=== PATIENT | male | born 1935 | race Caucasian/White ===

== ENCOUNTER → 2016-12-02 | Outpatient (CLI) | payer BC ==
[~2016-12-02] MED LIST: ALBU1.257 NEB; ASCO100T4 PO; ASPI81TA28 PO; CHOL1000 PO; CLOP1TAB15 PO; COEN100C11 PO; FLUT1INH INH; FRS/40 PO; GLCSC750600 PO; GLUC1TAB22 PO; HYT/2 PO; IMDSR60 PO; LECIGRA PO; LOSA1TAB PO; METO100T14 PO; METO50TA16 PO; MOME200A INH; MULT-513 PO; NTRGSL/4 UT; OMEG10007 PO; PRED20TA2 PO; SIMV40TA2 PO; VNTHFA/IN INH; ZNTT/150 PO
[2016-12-02 12:57] LABS: CALCIUM 9.1 mg/dl (8.5-10.1)
[2016-12-02 13:05] LABS: ALT/SGPT 31 U/L (12-78); AST/SGOT 24 U/L (15-37); BLOOD UREA NITROGEN 26 mg/dl (7-18); BUN/CREATININE RATIO 23.5 (10-20); CARBON DIOXIDE 25 mmol/L (21-32); CHLORIDE 111 mmol/L (98-107); CHOLESTEROL 171 mg/dl (0-200); GLUCOSE 99 mg/dl (70-99); POTASSIUM 4.3 mmol/L (3.5-5.1); SODIUM 144 mmol/L (136-145); TRIGLYCERIDES 95 mg/dl (0-150); VERY LOW DENSITY LIPOPROT CALC 19 mg/dl
[2016-12-02 13:12] LABS: ALB/GLOB RATIO 1.1 (0.9-2); ALKALINE PHOSPHATASE 63 U/L (45-117); CHOLESTEROL/HDL RATIO 2.9; HDL CHOLESTEROL 60 mg/dl; LDL CHOLESTEROL CALCULATED 92 mg/dl
== END | disposition home or self-care (01) ==
LOC: C.LABPVFM 07:53
PROVIDERS: ATTEND Family Medicine
DX: I25.10 Atherosclerotic heart disease of native coronary artery without angina pectoris (principal)

== ENCOUNTER 2016-12-16 16:55 | Emergency (ER) | payer BC ==
[~2016-12-16] VITALS: Ht 172.7 cm; Wt 91.3 kg
[~2016-12-16 16:55] MED LIST changes: -ALBU1.257 NEB; -ASCO100T4 PO; -CHOL1000 PO; -COEN100C11 PO; -FLUT1INH INH; -FRS/40 PO; -GLUC1TAB22 PO; -LOSA1TAB PO; -METO100T14 PO; -PRED20TA2 PO; -VNTHFA/IN INH
[2016-12-16 16:57] VITALS: TEMP 36.7; Ht 172.7 cm; Wt 91.3 kg
[2016-12-16] MEDS ORDERED: METO100T14 PO (17:43)
[2016-12-16] MEDS ORDERED: ALBUT/IPRATROP 3MG/0.5MG NEB 3 ML VIAL INH ONE (17:45)
[2016-12-16] MEDS ORDERED: FLUT1INH INH (17:46)
[2016-12-16] MEDS ORDERED: FRS/40 PO (17:50)
[2016-12-16] MEDS ORDERED: LOSA1TAB PO (17:51)
--- NOTE | 2016-12-16 17:51 | EMERGENCY ROOM VISIT NOTE ---
History Report prepared by Whitney: Sita Contreras Under the Supervision of: Dr. Gary Rivas M.D. First contact with patient: 17:25 Chief Complaint: RESPIRATORY PROBLEMS Stated Complaint: ADDED WEIGHT,DIFFICULTY BREATHING History of Present Illness The patient is an 81 year old male who presents to the Emergency Room with complaints of persistent SOB for the past few days. He has a history of CHF and is on Lasix which he takes every other day. For the past few days he has had to take Lasix everyday because of increasing weight gain and SOB. He felt short of breath when lying flat and noticed that his abdomen was swollen. He is also increasingly SOB when walking. He has gained 4-7 lbs in the last couple of days. He denies any chest pain or abdominal pain. He is not on oxygen at home. He has inhalers at home. He has a history of quadruple bypass and has a stent in place. He has a pacemaker. Source of History: patient Onset: few days ago Position: other (respiratory) Quality: other (SOB) Timing: other (persistent) Modifying Factors (Worsening): exertion, other (lying flat) Associated Symptoms: No abdominal pain, No chest pain Note: Pt reports weight gain, swollen abdomen. Review of Systems See HPI for pertinent positives & negatives. A total of 10 systems reviewed and were otherwise negative. 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 Surgical Problems: (1) Hx of CABG (2) S/P placement of cardiac pacemaker Family History Heart disease Hypertension Social History Smoking Status: Never Smoker Alcohol Use: none Drug Use: none Marital Status: Housing Status: lives with significant other Occupation Status: retired Current/Historical Medications Scheduled Albuterol Sulfate (Albuterol Sulfate), 1 VIAL NEB BID Ascorbic Acid (Vitamin C), 100 MG PO BID Aspirin (Aspirin Ec), 81 MG PO DAILY Cholecalciferol (Vitamin D3), 1 TAB PO QPM Clopidogrel (Plavix), 75 MG PO DAILY Coenzyme Q10 (Ubidecarenone) (Coq-10), 100 MG PO QPM Fish Oil (Fischer-3), 1 CAP PO BID Fluticasone Furoate-Vilanterol (Breo Ellipta), 1 PUFF INH DAILY Glucosamine Hydrochloride (Glucosamine), 1,500 MG PO BID Isosorbide Mononitrate (Isosorbide Mononitrate ER), 60 MG PO DAILY Lecithin (Lecithin), 1 DOSE PO DAILY Losartan Potassium (Cozaar), 1 TAB PO QPM Metoprolol Tartrate (Lopressor) (Lopressor), 50 MG PO BID Mometasone Furoate-Formoterol (Dulera 200/5 Mcg), 2 PUFFS INH BID Multivitamins/Minerals (Mvi With Minerals), 1 TAB PO DAILY Nitroglycerin (Nitrostat), 0.4 MG UT PRN Prednisone (Prednisone Tab), 0 PO DAILY Ranitidine (Zantac), 75 MG PO QPM Simvastatin (Zocor), 40 MG PO QPM Terazosin Hcl (Hytrin), 2 MG PO QPM Scheduled PRN Albuterol Hfa (Ventolin Hfa), 1-2 PUFFS INH DAILY PRN for SOB/Wheezing Furosemide (Lasix), 40 MG PO DAILY PRN for EDEMA Allergies Coded Allergies: Fluticasone (Unverified Adverse Reaction, Intermediate, DIZZY, 12/16/16) Milk Protein Extract (Unverified Adverse Reaction, Intermediate, DIZZY, 12/16/16) Salmeterol (Unverified Adverse Reaction, Intermediate, DIZZY, 12/16/16) Physical Exam Vital Signs Date Time Temp Pulse Resp B/P Pulse Ox O2 Delivery O2 Flow Rate FiO2 12/16/16 20:12 139/88 12/16/16 19:56 101 18 96 Room Air 12/16/16 19:32 98 12/16/16 18:48 99 12/16/16 18:48 73 18 138/70 100 Room Air 12/16/16 18:48 100 12/16/16 18:34 72 20 93 Room Air 21 12/16/16 16:57 36.7 91 22 121/78 93 Room Air Physical Exam GENERAL: Patient is a healthy-appearing well-nourished HEAD: Normocephalic atraumatic EYES: Ocular movements intact pupils equal and react to light OROPHARYNX mucous membranes are moist no exudates present no erythema or edema present NECK: Supple no nuchal rigidity CHEST: Good equal expansion LUNGS: Clear and equal to auscultation CARDIAC: Normal S1 and S2 ABDOMEN: Soft nontender no guarding BACK: No CVA tenderness EXTREMITIES: No pain upon palpation normal muscle strength in all groups no clubbing cyanosis or edema NEURO: Patient is following commands is answering questions appropriately. Alert and oriented x3 Cranial Nerves 2-12 grossly intact Medical Decision & Procedures ER Provider Diagnostic Interpretation: X-ray results as stated below per interpretation by me and the radiologist. Radiology results as stated below per my review and radiologist interpretation: CHEST ONE VIEW PORTABLE CLINICAL HISTORY: Pt c/o SOB dyspnea COMPARISON STUDY: 03/17/2016 FINDINGS: Moderate stable cardiomegaly. Cardiac pacemaker/defibrillator. Prior median sternotomy. Lungs are clear. IMPRESSION: Moderate stable cardiomegaly. Otherwise negative study Electronically signed by: Eduardo Rosales M.D. 12/16/2016 6:30 PM Dictated Date/Time: 12/16/2016 6:29 PM CHEST CTA for PULMONARY ARTERIES CT DOSE: 594.87 mGy.cm HISTORY: Chest dyspnea TECHNIQUE: Multiaxial CT images of the chest were performed following the intravenous administration of contrast to evaluate the pulmonary arteries. Maximal intensity projection images were also obtained. COMPARISON STUDY: None. FINDINGS: There is a normal caliber thoracic aorta with no evidence for dissection. There is no evidence for pulmonary embolus. No pleural effusions. No pneumothorax. The liver and spleen are unremarkable. No mediastinal or hilar lymphadenopathy. The central airways are patent. The lungs are clear. No focal infiltrate. Large fixed lateral hernia. Prior median sternotomy. Cardiac pacemaker. IMPRESSION: No evidence for pulmonary embolus. Large fixed hiatal hernia. Lungs are clear. Electronically signed by: Eduardo Rosales M.D. 12/16/2016 7:34 PM Dictated Date/Time: 12/16/2016 7:32 PM Laboratory Results 12/16/16 17:56 Red Blood Count 4.25, Mean Corpuscular Volume 96.0, Mean Corpuscular Hemoglobin 32.0, Mean Corpuscular Hemoglobin Concent 33.3, Mean Platelet Volume 10.8, Neutrophils (%) (Auto) 60.1, Lymphocytes (%) (Auto) 22.2, Monocytes (%) (Auto) 13.0, Eosinophils (%) (Auto) 3.1, Basophils (%) (Auto) 0.5, Neutrophils # (Auto ) 3.33, Lymphocytes # (Auto) 1.23, Monocytes # (Auto) 0.72, Eosinophils # (Auto ) 0.17, Basophils # (Auto) 0.03 12/16/16 17:56 Test 12/16/16 17:56 12/16/16 19:12 White Blood Count 5.54 K/uL (4.8-10.8) Red Blood Count 4.25 M/uL (4.7-6.1) Hemoglobin 13.6 g/dL (14.0-18.0) Hematocrit 40.8 % (42-52) Mean Corpuscular Volume 96.0 fL (80-100) Mean Corpuscular Hemoglobin 32.0 pg (25-34) Mean Corpuscular Hemoglobin Concent 33.3 g/dl (32-36) Platelet Count 168 K/uL (130-400) Mean Platelet Volume 10.8 fL (7.4-10.4) Neutrophils (%) (Auto) 60.1 % Lymphocytes (%) (Auto) 22.2 % Monocytes (%) (Auto) 13.0 % Eosinophils (%) (Auto) 3.1 % Basophils (%) (Auto) 0.5 % Neutrophils # (Auto) 3.33 K/uL (1.4-6.5) Lymphocytes # (Auto) 1.23 K/uL (1.2-3.4) Monocytes # (Auto) 0.72 K/uL (0.11-0.59) Eosinophils # (Auto) 0.17 K/uL (0-0.5) Basophils # (Auto) 0.03 K/uL (0-0.2) RDW Standard Deviation 49.4 fL (36.4-46.3) RDW Coefficient of Variation 13.9 % (11.5-14.5) Immature Granulocyte % (Auto) 1.1 % Immature Granulocyte # (Auto) 0.06 K/uL (0.00-0.02) Red Blood Cell Morphology Unremarkable Anion Gap 6.0 mmol/L (3-11) Est Creatinine Clear Calc Drug Dose 58.7 ml/min Estimated GFR () 73.1 Estimated GFR (Non- 63.1 BUN/Creatinine Ratio 19.3 (10-20) Calcium Level 8.3 mg/dl (8.5-10.1) Total Bilirubin 0.5 mg/dl (0.2-1) Aspartate Amino Transf (AST/SGOT) 27 U/L (15-37) Alanine Aminotransferase (ALT/SGPT) 23 U/L (12-78) Alkaline Phosphatase 60 U/L (45-117) Total Creatine Kinase 89 U/L (39-308) Creatine Kinase MB 2.4 ng/ml (0.5-3.6) Creatine Kinase MB Ratio 2.7 (0-3.0) Troponin I 0.017 ng/ml (0-0.045) Pro-B-Type Natriuretic Peptide 612 pg/ml (0-1800) Total Protein 6.2 gm/dl (6.4-8.2) Albumin 3.2 gm/dl (3.4-5.0) Globulin 3.0 gm/dl (2.5-4.0) Albumin/Globulin Ratio 1.1 (0.9-2) Chemistry Specimen Hemolysis Urine Color YELLOW Urine Appearance CLOUDY (CLEAR) Urine pH 5.0 (4.5-7.5) Urine Specific [place] 1.017 (1.000-1.030) Urine Protein NEG (NEG) Urine Glucose (UA) NEG (NEG) Urine Ketones TRACE (NEG) Urine Occult Blood NEG (NEG) Urine Nitrite NEG (NEG) Urine Bilirubin NEG (NEG) Urine Urobilinogen NEG (NEG) Urine Leukocyte Esterase NEG (NEG) Urine WBC (Auto) 1-5 /hpf (0-5) Urine RBC (Auto) 0-4 /hpf (0-4) Urine Hyaline Casts (Auto) 1-5 /lpf (0-5) Urine Epithelial Cells (Auto) >30 /lpf (0-5) Urine Bacteria (Auto) NEG (NEG) Labs reviewed by ED physician. Medications Administered Medications (Trade) Dose Ordered Sig/Nitin Route Start Time Stop Time Status Last Admin Dose Admin Albuterol/ Ipratropium (Duoneb) 12 ml ONE ONCE INH 12/16/16 17:45 12/16/16 17:46 DC 12/16/16 17:45 12 ML Methylprednisolone Sodium Succinate (Solu-Medrol IV) 60 mg NOW STAT IV 12/16/16 19:48 12/16/16 19:50 DC 12/16/16 20:01 60 MG Prednisone (PredniSONE TAB) 40 mg NOW STAT PO 12/16/16 20:07 12/16/16 20:08 DC 12/16/16 20:10 40 MG ECG Indication: SOB/dyspnea Rate (beats per minute): 70 Rhythm: other (dual paced rhythm) Findings: no acute ischemic change, no ectopy ED Course 1725: Past medical records reviewed. The patient was evaluated in room B4B. A complete history and physical examination was performed. 1744: Duoneb 12 ml INH. 1941: Upon reexamination the patient is resting comfortably. I discussed results and treatment plan with the patient and his family. They verbalize agreement and understanding. The patient is ready for discharge. 1947: Solu-Medrol IV 60 mg IV. Medical Decision Prior records/ancillary studies reviewed. Triage Nursing notes reviewed. Additional history obtained from the family. The patient's history was concerning for respiratory difficulties. Differential diagnosis: Etiologies such as infections, reactive airway disease, pneumonia, pneumothorax , COPD, CHF, cardiac ischemia, pulmonary embolism, musculoskeletal, gastrointestinal, as well as others were entertained. This is an 81-year-old male who presents emergency department complaining of 4 pound weight can. The patient is concern that he is filled with fluid. He has no evidence of pitting edema on exam. He has no evidence of rails on exam. He has no evidence of pulmonary edema on chest x-ray. In addition the patient's BNP is normal. The patient was given an hour-long breathing treatment in the emergency department. He is not hypoxic. Based on these multiple findings I felt that the patient as well as to be discharged home. He was sent for CAT scan of the chest which did not show any evidence of a PE. The patient will therefore be certain on Solu-Medrol and I feels well enough to be continued on prednisone for the next several days. Patient and family are in agreement with the treatment plan. Impression Primary Impression: COPD (chronic obstructive pulmonary disease) Scribe Attestation The scribe's documentation has been prepared under my direction and personally reviewed by me in its entirety. I confirm that the note above accurately reflects all work, treatment, procedures, and medical decision making performed by me. Departure Information Dispostion Home / Self-Care Prescriptions Prednisone (Prednisone Tab) 20 Mg Tab 0 PO DAILY, #7 TAB 2 TABS DAILY FOR 2 DAYS, THEN 1 TAB DAILY FOR 2 DAYS, THEN 1/2 TAB DAILY FOR 2 DAYS. Prov: Gary Rivas MD 12/16/16 Referrals Robe Peralta M.D. (PCP) Ck Arce MD Forms HOME CARE DOCUMENTATION FORM, IMPORTANT VISIT INFORMATION, WORK / SCHOOL INSTRUCTIONS Patient Instructions COPD - [facility], My [facility] Additional Instructions Follow up with DR Arce's office Continue to use inhalers and Lasix as directed You have been examined and treated today on an emergency basis only. This is not a substitute for, or an effort to provide, complete comprehensive medical care. It is impossible to recognize and treat all injuries or illnesses in a single emergency department visit. It is therefore important that you follow up closely with Dr Peralta. Call as soon as possible for an appointment. Thank you for your time and consideration. I look forward to speaking with you again soon. Please don't hesitate to call us if you have any questions. Problem Qualifiers Primary Impression: COPD (chronic obstructive pulmonary disease) COPD type: unspecified COPD Qualified Codes: J44.9 - Chronic obstructive pulmonary disease, unspecified
[2016-12-16] MEDS ORDERED: ALBU1.257 NEB (17:53)
[2016-12-16] MEDS ORDERED: VNTHFA/IN INH (17:55)
[2016-12-16] MEDS ORDERED: CHOL1000 PO (17:56)
[2016-12-16] MEDS ORDERED: COEN100C11 PO (17:59)
[2016-12-16] MEDS ORDERED: ASCO100T4 PO (17:59)
[2016-12-16] MEDS ORDERED: GLUC1TAB22 PO (18:01)
[2016-12-16 18:08] LABS: BASO % 0.5 %; BASO ABS # 0.03 K/uL (0-0.2); EOS % 3.1 %; HEMATOCRIT 40.8 % (42-52); IG% 1.1 %; LYMPH % 22.2 %; LYMPH ABS # 1.23 K/uL (1.2-3.4); MEAN CORPUSCULAR HGB CONC 33.3 g/dl (32-36); MEAN PLATELET VOLUME 10.8 fL (7.4-10.4); NEUT % 60.1 %; PLATELET COUNT 168 K/uL (130-400); RED BLOOD COUNT 4.25 M/uL (4.7-6.1); WHITE BLOOD COUNT 5.54 K/uL (4.8-10.8)
--- NOTE | 2016-12-16 18:31 | DIAGNOSTIC IMAGING REPORT ---
CHEST ONE VIEW PORTABLE CLINICAL HISTORY: Pt c/o SOB dyspnea COMPARISON STUDY: 03/17/2016 FINDINGS: Moderate stable cardiomegaly. Cardiac pacemaker/defibrillator. Prior median sternotomy. Lungs are clear. IMPRESSION: Moderate stable cardiomegaly. Otherwise negative study Electronically signed by: Eduardo Rosales M.D. 12/16/2016 6:30 PM Dictated Date/Time: 12/16/2016 6:29 PM
[2016-12-16 18:34] VITALS: PULSE 72; O2SAT 93
[2016-12-16 18:36] LABS: ALB/GLOB RATIO 1.1 (0.9-2); BUN/CREATININE RATIO 19.3 (10-20); CALCIUM 8.3 mg/dl (8.5-10.1); CKMB/CK RATIO 2.7 (0-3.0); COMPLETE YES; CREATININE 1.1 mg/dl (0.60-1.40)
[2016-12-16 18:48] VITALS: O2SAT 100
[2016-12-16] MEDS ORDERED: OPTIRAY 320 IV PRN (19:00)
[2016-12-16 19:34] LABS: URINE APPEARANCE CLOUDY (CLEAR); URINE BILIRUBIN NEG (NEG); URINE COLOR YELLOW; URINE EPITHELIAL CELL AUTO >30 /lpf (0-5); URINE NITRITE NEG (NEG); URINE SPECIFIC GRAVITY 1.017 (1.000-1.030); UROBILINOGEN NEG (NEG)
[2016-12-16 19:35] LABS: MANUAL MICROSCOPIC REQUIRED? NO; REVIEW REQ? NO
--- NOTE | 2016-12-16 19:36 | DIAGNOSTIC IMAGING REPORT ---
CHEST CTA for PULMONARY ARTERIES CT DOSE: 594.87 mGy.cm HISTORY: Chest dyspnea TECHNIQUE: Multiaxial CT images of the chest were performed following the intravenous administration of contrast to evaluate the pulmonary arteries. Maximal intensity projection images were also obtained. COMPARISON STUDY: None. FINDINGS: There is a normal caliber thoracic aorta with no evidence for dissection. There is no evidence for pulmonary embolus. No pleural effusions. No pneumothorax. The liver and spleen are unremarkable. No mediastinal or hilar lymphadenopathy. The central airways are patent. The lungs are clear. No focal infiltrate. Large fixed lateral hernia. Prior median sternotomy. Cardiac pacemaker. IMPRESSION: No evidence for pulmonary embolus. Large fixed hiatal hernia. Lungs are clear. Electronically signed by: Eduardo Rosales M.D. 12/16/2016 7:34 PM Dictated Date/Time: 12/16/2016 7:32 PM
[2016-12-16] MEDS ORDERED: METHYLPREDNISOLONE 125 MG VIAL IV STA (19:48)
[2016-12-16] MEDS ORDERED: PRED20TA2 PO (19:50)
[2016-12-16 19:56] VITALS: PULSE 101; O2SAT 96
[2016-12-16 20:12] VITALS: BP 139/88
== END 2016-12-16 20:13 | disposition home or self-care (01) ==
LOC: C.EDB 16:57
DX: J44.9 Chronic obstructive pulmonary disease, unspecified (principal); Z83.3 Family history of diabetes mellitus; Z82.49 Family history of ischemic heart disease and other diseases of the circulatory system

== ENCOUNTER 2017-09-24 17:44 | Inpatient (IN) | payer BC, OTHER ==
[~2017-09-24] VITALS: Ht 172.7 cm; Wt 89.5 kg
[2017-09-24] MEDS: ALBUT/IPRATROP 3MG/0.5MG NEB 3 ML VIAL INH SCH (02:06)
[~2017-09-24 17:44] MED LIST changes: +ALBU1.257 NEB; +ASCO100T4 PO; +CHOL1000 PO; +COEN100C11 PO; +FLUT1INH INH; +FRS/40 PO; -GLCSC750600 PO; +GLUC1TAB22 PO; +LOSA1TAB PO; +METO100T14 PO; -METO50TA16 PO; +RANI150T85 PO; +VNTHFA/IN INH; -ZNTT/150 PO
[2017-09-24 18:02] VITALS: Ht 172.7 cm; Wt 89.5 kg
--- NOTE | 2017-09-24 18:52 | EMERGENCY ROOM VISIT NOTE ---
History First contact with patient: 18:29 Chief Complaint: FLU LIKE SX Stated Complaint: FLU LIKE, FEVER, DIFFICULT BREATHING History of Present Illness The patient is a 82 year old male who presents to the Emergency Room with complaints of acute onset of productive cough associated with dyspnea and chest pain secondary to coughing, some nasal congestion, weakness and fevers/chills in last 24 hours. Patient has not had a sore throat, sinus pain, ear pain, palpitations, abdominal pain, lower extremity swelling or rashes. He is tolerating diet without nausea or vomiting, but admits to diminished appetite with decreased fluid intake. He does describe some urinary symptoms. he is stooling appropriately. No increased use of Dulera or albuterol. Some PND recently. No orthopnea. Ambulating exacerbates symptoms and he has noted decreased exercise tolerance in last month. Patient lives at home. No sick contacts. Never smoker but diagnosis of COPD from second hand exposure. Does not use CPAP/BiPap. Has h/o CHF, has a pacemaker/with defibrillator. PR 1984, CABG x4 1988, stent 2004, GI bleed & PR in 2012, pacer/defib 2015, PR 2015, COPD/asthma. Follows [facility] consultant, Dr. Bhat - last appt 1.5 months ago, last echo 12/26. Source of History: patient, family History Limited By: dementia Onset: 24 hours ago Position: chest Symptom Intensity: moderate Modifying Factors (Worsening): exertion, other (coughing) Modifying Factors (Relieving): rest Associated Symptoms: + fevers, + chills, + chest pain, + SOB, + fatigue Review of Systems See HPI for pertinent positives and negatives. A total of ten systems were reviewed and were otherwise negative. 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 Surgical Problems: (1) Hx of CABG (2) S/P placement of cardiac pacemaker Family History Heart disease Hypertension Social History Smoking Status: Never Smoker Alcohol Use: none Drug Use: none Marital Status: Housing Status: lives with significant other Occupation Status: retired Current/Historical Medications Scheduled Albuterol Sulfate (Albuterol Sulfate), 1 VIAL NEB BID Ascorbic Acid (Vitamin C), 100 MG PO BID Aspirin (Aspirin Ec), 81 MG PO DAILY Cholecalciferol (Vitamin D3), 1,000 MG PO DAILY Clopidogrel (Plavix), 75 MG PO DAILY Coenzyme Q10 (Ubidecarenone) (Coq-10), 100 MG PO QPM Fish Oil ([place]-3), 1,200 MG PO DAILY Uyxkdnddeaf-Raoukcpyxos-Zzv C- (Glucosamine Chondroitin), 1 CAP PO BID Isosorbide Mononitrate Ext Rel (Imdur Ext Rel), 30 MG PO DAILY Lecithin (Lecithin 3500), 1,200 MG PO DAILY Losartan Potassium (Cozaar), 25 MG PO QPM Metoprolol Tartrate (Lopressor) (Lopressor), 100 MG PO DAILY Mometasone Furoate-Formoterol (Dulera 200/5 Mcg), 2 PUFFS INH BID Multivitamin (Multivitamin), 1 TAB PO DAILY Nitroglycerin (Nitrostat), 0.4 MG UT PRN Ranitidine (Zantac), 75 MG PO QPM Simvastatin (Zocor), 40 MG PO QPM Terazosin Hcl (Hytrin), 2 MG PO QPM Scheduled PRN Albuterol Hfa (Ventolin Hfa), 1-2 PUFFS INH DAILY PRN for SOB/Wheezing Furosemide (Lasix), 45 MG PO DAILY PRN for EDEMA Physical Exam Vital Signs Date Time Temp Pulse Resp B/P (MAP) Pulse Ox O2 Delivery O2 Flow Rate FiO2 09/24/17 20:48 37.2 78 18 100/60 91 Room Air 09/24/17 19:14 80 09/24/17 18:02 38.7 91 20 112/66 93 Room Air Physical Exam GENERAL: alert, lying in bed, mild acute distress, non-toxic HEAD: Normocephalic, atraumatic. No sinus tenderness. EYES: PERRL, EOMI, normal sclera and conjunctiva OROPHARYNX: No exudate, no erythema. Lips, buccal mucosa, and tongue normal and mucous membranes are tacky NECK: Supple, no nuchal rigidity, no adenopathy, non-tender LUNGS: No reproducible chest tenderness. Normal chest wall mechanics. Increased work of breathing with use of some accessory muscles. Lungs with diffuse rhonchi , wheezing and prolonged expiratory phase. No crackles HEART: RRR, S1 and S2 normal, no murmurs appreciated ABDOMEN: Soft, non-tender, normo-active bowel sounds, some distension, no masses , no rebound or guarding. BACK: Back is symmetrical on inspection, no deformities, no midline tenderness, no CVA tenderness. SKIN: Warm, pink, dry. No erythema, rashes, or bruising. EXTREMITIES: Grossly normal. Moving all 4 limbs, strength 5/5. +1 pitting edema. Calves non tender. NEURO: Alert, Ox3. No focal deficits. Normal sensorium, cranial nerves II-XII grossly intact, normal speech. PSYCH: Mood and affect appropriate. Medical Decision & Procedures ER Provider Diagnostic Interpretation: CHEST ONE VIEW PORTABLE CLINICAL HISTORY: SOB dyspnea COMPARISON STUDY: 06/15/2017 FINDINGS: Mild stable cardiomegaly. Prior median sternotomy. Cardiac pacemaker/defibrillator in good position. Small fixed lateral hernia. Lungs are clear. Diaphragms smooth. IMPRESSION: Chronic and postoperative change. No acute process. Laboratory Results 09/24/17 18:47 Red Blood Count 4.46, Mean Corpuscular Volume 95.3, Mean Corpuscular Hemoglobin 31.4, Mean Corpuscular Hemoglobin Concent 32.9, Mean Platelet Volume 11.9, Neutrophils (%) (Auto) 77.1, Lymphocytes (%) (Auto) 10.8, Monocytes (%) (Auto) 10.3, Eosinophils (%) (Auto) 0.9, Basophils (%) (Auto) 0.3, Neutrophils # (Auto ) 5.08, Lymphocytes # (Auto) 0.71, Monocytes # (Auto) 0.68, Eosinophils # (Auto ) 0.06, Basophils # (Auto) 0.02 09/24/17 18:47 Test 09/24/17 18:47 09/24/17 19:04 09/24/17 19:05 09/24/17 19:23 White Blood Count 6.59 K/uL (4.8-10.8) Red Blood Count 4.46 M/uL (4.7-6.1) Hemoglobin 14.0 g/dL (14.0-18.0) Hematocrit 42.5 % (42-52) Mean Corpuscular Volume 95.3 fL (80-100) Mean Corpuscular Hemoglobin 31.4 pg (25-34) Mean Corpuscular Hemoglobin Concent 32.9 g/dl (32-36) Platelet Count 133 K/uL (130-400) Mean Platelet Volume 11.9 fL (7.4-10.4) Neutrophils (%) (Auto) 77.1 % Lymphocytes (%) (Auto) 10.8 % Monocytes (%) (Auto) 10.3 % Eosinophils (%) (Auto) 0.9 % Basophils (%) (Auto) 0.3 % Neutrophils # (Auto) 5.08 K/uL (1.4-6.5) Lymphocytes # (Auto) 0.71 K/uL (1.2-3.4) Monocytes # (Auto) 0.68 K/uL (0.11-0.59) Eosinophils # (Auto) 0.06 K/uL (0-0.5) Basophils # (Auto) 0.02 K/uL (0-0.2) RDW Standard Deviation 53.0 fL (36.4-46.3) RDW Coefficient of Variation 15.3 % (11.5-14.5) Immature Granulocyte % (Auto) 0.6 % Immature Granulocyte # (Auto) 0.04 K/uL (0.00-0.02) Anion Gap 7.0 mmol/L (3-11) Est Creatinine Clear Calc Drug Dose 53.5 ml/min Estimated GFR () 66.7 Estimated GFR (Non- 57.5 BUN/Creatinine Ratio 16.6 (10-20) Calcium Level 8.8 mg/dl (8.5-10.1) Creatine Kinase MB 1.2 ng/ml (0.5-3.6) Troponin I 0.045 ng/ml (0-0.045) Creatine Kinase MB Ratio (0-3.0) Influenza Type A Antigen Neg for Influ A (NEG) Influenza Type B Antigen Neg for Influ B (NEG) Lactic Acid Level 1.2 mmol/L (0.4-2.0) Test 09/24/17 19:35 Procalcitonin < 0.05 ng/ml (0-0.5) Medications Administered Medications (Trade) Dose Ordered Sig/Nitni Route Start Time Stop Time Status Last Admin Dose Admin Acetaminophen (Tylenol Tab) 1,000 mg NOW STAT PO 09/24/17 19:33 09/24/17 19:34 DC 09/24/17 19:47 1,000 MG Albuterol Sulfate (Ventolin 0.5% 2.5MG/0.5ML Neb) 2.5 mg STK-MED ONCE INH 09/24/17 19:42 09/24/17 19:43 DC 09/24/17 19:49 2.5 MG Methylprednisolone Sodium Succinate 60 mg/Syringe 0.96 ml @ 1.5 mls/min NOW STAT IV 09/24/17 20:16 09/24/17 20:17 DC 09/24/17 20:48 1.5 MLS/MIN Albuterol/ Ipratropium (Duoneb) 3 ml ONE STAT INH 09/24/17 20:16 09/24/17 20:17 DC 09/24/17 20:48 3 ML ECG Rate (beats per minute): 80 Rhythm: normal sinus Findings: PVC, paced rhythm Comparison ECG Date: Change: Atrial-sensed ventricular-paced rhythm with occasional Premature ventricular complexes Biventricular pacemaker detected Abnormal ECG HR 80, QTc 516 ED Course 18:52 Patient assessed and thorough history and clinical exam performed 19:04 Labs and imaging ordered 19:47 Tylenol and Duonebs ordered 20:12 Patient reassessed and not deemed significantly improved 20:42 Duoneb and methylprednisone ordered 21:07 Consult placed to hospitalist Medical Decision The patient's care and disposition was discussed with Dr. Rivas, Attending ED Physician. Prior records/ancillary studies reviewed. Triage Nursing notes reviewed. Additional history obtained from patient's friends. The patient's history was concerning for fever, dyspnea and fatigue. The patient was evaluated in room C9. A complete history and physical exam was performed. Differential diagnosis: Etiologies such as viral syndrome, otitis, pharyngitis, pneumonia, influenza, meningitis, urinary tract infection, sepsis, bacteremia, as well as others were entertained. Patient was given PO Tylenol and DuoNebs for symptom relief. Additionally, 500mL of IV normal saline was given to gently improve hydration status given reduced EF of 25-30%. On reassessment the patient felt minimally better, still feeling dyspneic with saturations 91-92% Lab work was performed. CBC, BMP, LFT and were all within normal limits. Troponin was mildly elevated at 0.045. EKG demonstrated paced rhythm and prolonged QT CXR reported no acute pulmonary issues Urinalysis was ordered but uncollected as patient did not void during his time in the ED, likely secondary to dehydration Likely diagnosis is COPD exacerbation secondary to viral URTI. On reassessment the patient still having increased work of breathing, and lungs extremely wheezy. Provided additional Duoneb and IV methylprednisolone. By the evaluation outlined above emergent etiologies such as otitis, pharyngitis , pneumonia, meningitis,sepsis, bacteremia, as well as others were deemed relatively unlikely. The patient and his family were informed about the findings as listed above. All questions were answered and they were pleased with the treatment. A consultation was placed with the JOHNNY Roberts hospitalist. The case was discussed and diagnostics were reviewed. The hospitalist agreeable for further evaluation/ Medication Reconcilliation Current Medication List: was personally reviewed by me Blood Pressure Screening Patient's blood pressure: Low blood pressure Impression Primary Impression: COPD with exacerbation Additional Impression: Viral upper respiratory illness Departure Information Dispostion Being Evaluated By Hospitalist Condition FAIR Referrals Robe Peralta M.D. (PCP) Patient Instructions My [facility] Resident Tracking Resident Involvement: Resident Care Provided Care Provided: Adult ED Problem Qualifiers
[2017-09-24 19:02] LABS: BASO % 0.3 %; BASO ABS # 0.02 K/uL (0-0.2); EOS % 0.9 %; EOS ABS # 0.06 K/uL (0-0.5); HEMATOCRIT 42.5 % (42-52); IG# 0.04 K/uL (0.00-0.02); LYMPH % 10.8 %; LYMPH ABS # 0.71 K/uL (1.2-3.4); MEAN CELL VOLUME 95.3 fL (80-100); MEAN CORPUSCULAR HEMOGLOBIN 31.4 pg (25-34); MEAN CORPUSCULAR HGB CONC 32.9 g/dl (32-36); MEAN PLATELET VOLUME 11.9 fL (7.4-10.4); MONO % 10.3 %; MONO ABS # 0.68 K/uL (0.11-0.59); NEUT % 77.1 %; NEUT ABS # 5.08 K/uL (1.4-6.5); PLATELET COUNT 133 K/uL (130-400); RED CELL DISTRIBUTION WIDTH CV 15.3 % (11.5-14.5); WHITE BLOOD COUNT 6.59 K/uL (4.8-10.8)
[2017-09-24 19:15] LABS: CALCIUM 8.8 mg/dl (8.5-10.1); CREATININE 1.18 mg/dl (0.60-1.40); POTASSIUM 3.8 mmol/L (3.5-5.1)
--- NOTE | 2017-09-24 19:19 | DIAGNOSTIC IMAGING REPORT ---
CHEST ONE VIEW PORTABLE CLINICAL HISTORY: SOB dyspnea COMPARISON STUDY: 06/15/2017 FINDINGS: Mild stable cardiomegaly. Prior median sternotomy. Cardiac pacemaker/defibrillator in good position. Small fixed lateral hernia. Lungs are clear. Diaphragms smooth. IMPRESSION: Chronic and postoperative change. No acute process. The above report was generated using voice recognition software. It may contain grammatical, syntax or spelling errors. Electronically signed by: Eduardo Rosales M.D. 09/24/2017 7:18 PM Dictated Date/Time: 09/24/2017 7:16 PM
[2017-09-24] MEDS ORDERED: ACETAMINOPHEN 500 MG TAB PO STA (19:33)
[2017-09-24 19:35] LABS: CKMB 1.2 ng/ml (0.5-3.6)
[2017-09-24 19:38] LABS: INFLUENZA B ANTIGEN Neg for Influ B (NEG)
[2017-09-24] MEDS ORDERED: ALBUTEROL 0.5% NEB SOLN 2.5 MG/0.5 ML VIAL INH ONE ×2 (19:42→19:59)
[2017-09-24] MEDS ORDERED: ALBUTEROL 0.083% NEBU SOLN 3 ML VIAL INH ONE (19:48)
[2017-09-24] MEDS ORDERED: ISR/30 PO (19:49)
[2017-09-24] MEDS ORDERED: ISOS30TA35 PO (19:51)
[2017-09-24] MEDS ORDERED: GLUC1CAP35 PO (20:04)
[2017-09-24] MEDS ORDERED: LECI1CAP3 PO (20:05)
[2017-09-24] MEDS ORDERED: MULT-506 PO (20:06)
[2017-09-24] MEDS ORDERED: ALBUT/IPRATROP 3MG/0.5MG NEB 3 ML VIAL INH STA ×2 (20:16→21:23)
[2017-09-24] MEDS ORDERED: METHYLPREDNISOLONE IV 60 MG in SYRINGE 0 ML IV STA (20:16)
[2017-09-24] MEDS ORDERED: ALBUTEROL 0.083% NEBU SOLN 3 ML VIAL INH PRN (21:15)
[2017-09-24] MEDS ORDERED: NITROGLYCERIN 0.4 MG SL PER TAB CHARGE UT SCH (21:15)
--- NOTE | 2017-09-24 21:29 | History and Physical ---
History & Physical Date & Time of Service: Sep 24, 2017 at 21:17 Chief Complaint: Flu Like, Fever, Difficult Breathing Primary Care Physician: No Doctor, Assigned History of Present Illness Source: patient, hospital records 82 y/o M Hx HTN, HPL, CAD, asthma, chronic systolic CHF. Pt presents with SOB, fever and a productive cough. He denies CP, N/V, diarrhea or dysuria. A fever of 38.7 was confirmed on arrival to the ER. Past Medical/Surgical History 1) Systolic CHF - EF 25-20% - global hypokinesis - echo 2015 2) CAD - 4V CABG 1988, STEMI 2004 leading to RCA stent. 3) Pacer/defib 4) HTN 5) HPL 6) GERD 7) Duodenal ulcer 8) Asthma Surgical: 1) CABG 1988 2) THR 3) Pacer/Defib Family History Heart disease Hypertension Social History Smoking Status: Never Smoker Drug Use: none Marital Status: Housing status: lives with family Occupational Status: retired Immunizations History of Influenza Vaccine: No Influenza Vaccine Date: May 28, 2011 History of Tetanus Vaccine?: Yes Tetanus Immunization Date: Sep 02, 2003 History of Pneumococcal: Yes Pneumococcal Date: Aug 02, 2005 History of Hepatitis B Vaccine: No Multi-Drug Resistant Organisms History of MDRO: No Allergies Coded Allergies: Fluticasone (Unverified Adverse Reaction, Intermediate, DIZZY, 09/24/17) Milk Protein Extract (Unverified Adverse Reaction, Intermediate, DIZZY, 07/30) Salmeterol (Unverified Adverse Reaction, Intermediate, DIZZY, 09/24/17) Home Medications Scheduled Albuterol Sulfate (Albuterol Sulfate), 1 VIAL NEB BID Ascorbic Acid (Vitamin C), 100 MG PO BID Aspirin (Aspirin Ec), 81 MG PO DAILY Cholecalciferol (Vitamin D3), 1,000 MG PO DAILY Clopidogrel (Plavix), 75 MG PO DAILY Coenzyme Q10 (Ubidecarenone) (Coq-10), 100 MG PO QPM Fish Oil ([place]-3), 1,200 MG PO DAILY Zxbjqnhlvzr-Txglbytfusd-Ecw C- (Glucosamine Chondroitin), 1 CAP PO BID Isosorbide Mononitrate Ext Rel (Imdur Ext Rel), 30 MG PO DAILY Lecithin (Lecithin 3500), 1,200 MG PO DAILY Losartan Potassium (Cozaar), 25 MG PO QPM Metoprolol Tartrate (Lopressor) (Lopressor), 100 MG PO DAILY Mometasone Furoate-Formoterol (Dulera 200/5 Mcg), 2 PUFFS INH BID Multivitamin (Multivitamin), 1 TAB PO DAILY Nitroglycerin (Nitrostat), 0.4 MG UT PRN Ranitidine (Zantac), 75 MG PO QPM Simvastatin (Zocor), 40 MG PO QPM Terazosin Hcl (Hytrin), 2 MG PO QPM Scheduled PRN Albuterol Hfa (Ventolin Hfa), 1-2 PUFFS INH DAILY PRN for SOB/Wheezing Furosemide (Lasix), 45 MG PO DAILY PRN for EDEMA Review of Systems Constitutional: + fever, + chills, + weakness, + fatigue Eyes: No worsening of vision ENT: No hearing loss, No unusual epistaxis, No nasal symptoms Respiratory: + cough, + sputum, + wheezing, + shortness of breath, + dyspnea on exertion, + dyspnea at rest Cardiovascular: No chest pain, No orthopnea, No PND Abdomen: No pain, No nausea, No vomiting Musculoskeletal: No joint pain Genitourinary - Male: No hematuria, No dysuria Neurologic: + weakness, No memory loss, No paralysis Psychiatric: No depression symptoms Endocrine: + fatigue Hematologic / Lymphatic: No abnormal bleeding/bruising Integumentary: No rash Allergic / Immunologic: No environmental allergies Physical Exam Vital Signs Date Time Temp Pulse Resp B/P (MAP) Pulse Ox O2 Delivery O2 Flow Rate FiO2 09/24/17 20:48 37.2 78 18 100/60 91 Room Air 09/24/17 19:14 80 09/24/17 18:02 38.7 91 20 112/66 93 Room Air General Appearance: no apparent distress, + pertinent finding (PLeasant, overweight, elderly male in no distress - AAO) Head: normocephalic Eyes: normal inspection, EOMI ENT: normal ENT inspection, pharynx normal Neck: supple, no JVD Respiratory/Chest: chest non-tender, lungs clear, normal breath sounds Cardiovascular: regular rate, rhythm, no edema, no gallop, no JVD Abdomen/GI: normal bowel sounds, non tender, soft Back: normal inspection, no CVA tenderness Extremities/Musculoskelatal: normal inspection, no calf tenderness, normal capillary refill, no pedal edema Neurologic/Psych: automatic seamer II-XII nml as tested, no motor/sensory deficits, alert, oriented x 3 Skin: normal color, warm/dry Diagnostics Laboratory Results Results Past 24 Hours Test 09/24/17 18:47 09/24/17 19:04 09/24/17 19:05 09/24/17 19:23 Range/Units White Blood Count 6.59 4.8-10.8 K/uL Red Blood Count 4.46 4.7-6.1 M/uL Hemoglobin 14.0 14.0-18.0 g/dL Hematocrit 42.5 42-52 % Mean Corpuscular Volume 95.3 80-100 fL Mean Corpuscular Hemoglobin 31.4 25-34 pg Mean Corpuscular Hemoglobin Concent 32.9 32-36 g/dl Platelet Count 133 130-400 K/uL Mean Platelet Volume 11.9 7.4-10.4 fL Neutrophils (%) (Auto) 77.1 % Lymphocytes (%) (Auto) 10.8 % Monocytes (%) (Auto) 10.3 % Eosinophils (%) (Auto) 0.9 % Basophils (%) (Auto) 0.3 % Neutrophils # (Auto) 5.08 1.4-6.5 K/uL Lymphocytes # (Auto) 0.71 1.2-3.4 K/uL Monocytes # (Auto) 0.68 0.11-0.59 K/uL Eosinophils # (Auto) 0.06 0-0.5 K/uL Basophils # (Auto) 0.02 0-0.2 K/uL RDW Standard Deviation 53.0 36.4-46.3 fL RDW Coefficient of Variation 15.3 11.5-14.5 % Immature Granulocyte % (Auto) 0.6 % Immature Granulocyte # (Auto) 0.04 0.00-0.02 K/uL Sodium Level 141 136-145 mmol/L Potassium Level 3.8 3.5-5.1 mmol/L Chloride Level 107 98-107 mmol/L Carbon Dioxide Level 27 21-32 mmol/L Anion Gap 7.0 3-11 mmol/L Blood Urea Nitrogen 20 7-18 mg/dl Creatinine 1.18 0.60-1.40 mg/dl Est Creatinine Clear Calc Drug Dose 53.5 ml/min Estimated GFR () 66.7 Estimated GFR (Non- 57.5 BUN/Creatinine Ratio 16.6 10-20 Random Glucose 100 70-99 mg/dl Calcium Level 8.8 8.5-10.1 mg/dl Creatine Kinase MB 1.2 0.5-3.6 ng/ml Troponin I 0.045 0-0.045 ng/ml Creatine Kinase MB Ratio 0-3.0 Influenza Type A Antigen Neg for Influ A NEG Influenza Type B Antigen Neg for Influ B NEG Lactic Acid Level 1.2 0.4-2.0 mmol/L Test 09/24/17 19:35 Range/Units Procalcitonin < 0.05 0-0.5 ng/ml Microbiology Results 09/24/17 Blood Culture, Received Pending 09/24/17 Blood Culture, Received Pending Diagnostic Radiology CXR: Chronic and postoperative change. No acute process. EKG BV pacing Impression Assessment and Plan 82 y/o M Hx HTN, HPL, CAD, COPD, chronic systolic CHF. Pt presents with SOB, fever and a productive cough. He denies CP, N/V, diarrhea or dysuria. 1) Acute onset cough, fever, SOB, Hx COPD - considering his symptoms, age and lack of evidence for bacterial pneumonia, we will treat with Tamiflu pending PCR. Can DC if negative. Pt placed on breathing treatments and an 02 protocol as needed. He is not exhibiting hypoxia or wheezing so that we will hold off on steroids presently. 2) CHF - clinically euvolemic - he takes Lasix PRN only - daily weights requested, assess volume status QAM. Cont B heriberto, ARB. 3) CAD - cont B heriberto, ASA, Plavix, statin, Imdur - Trop is high-normal - EKG is nondiagnostic - will recheck at 6 hr interval 4) HTN, HPL - cont B heriberto, ARB, Statin, Imdur Full code - Heparin prophylaxis Total time for this admit including review of labs, meds, imaging, records, EKG - discussion with pt/family, ER attending - 38 min Level of Care Telemetry Resuscitation Status FULL RESUSCITATION VTE Prophylaxis Given or contraindicated: Unfractionated heparin SQ
[2017-09-24] MEDS ORDERED: MAGNESIUM HYDROXIDE SUSP 30 ML UDC PO PRN (21:30)
[2017-09-24] MEDS ORDERED: ALUMINUM/MAGNESIUM/SIMETH (MAALOX MAX) 30 ML UDC PO PRN (21:30)
[2017-09-24] MEDS ORDERED: ONDANSETRON INJ 2 MG/ML 2 ML VIAL IV PRN (21:30)
[2017-09-24] MEDS ORDERED: ACETAMINOPHEN 325 MG TAB PO PRN (21:30)
[2017-09-24] MEDS ORDERED: POLYETHYLENE (MIRALAX) 17 GM PACK PO PRN (21:30)
[2017-09-24 23:30] VITALS: BP 100/57; PULSE 75; TEMP 26.8; O2SAT 94
[2017-09-25] VITALS (9 sets, daily range): BP systolic 100–132; BP diastolic 60–75; PULSE 70–81; TEMP 36.3–36.9; O2SAT 91–98
[2017-09-25] MEDS ORDERED: SODIUM CHLORIDE 0.9% 1000ML 1,000 ML IV SCH
[2017-09-25] MEDS: ALBUT/IPRATROP 3MG/0.5MG NEB 3 ML VIAL INH SCH ×4 (02:06→19:43)
[2017-09-25 06:39] LABS: HEMOGLOBIN 13.3 g/dL (14.0-18.0); MEAN CELL VOLUME 95.7 fL (80-100); MEAN CORPUSCULAR HEMOGLOBIN 31.8 pg (25-34); MEAN CORPUSCULAR HGB CONC 33.3 g/dl (32-36); MEAN PLATELET VOLUME 11.3 fL (7.4-10.4); PLATELET COUNT 122 K/uL (130-400); RED CELL DISTRIBUTION WIDTH CV 15.2 % (11.5-14.5); RED CELL DISTRIBUTION WIDTH SD 53.4 fL (36.4-46.3)
[2017-09-25 07:13] LABS: CALCIUM 8.3 mg/dl (8.5-10.1); CREATININE 1.32 mg/dl (0.60-1.40); POTASSIUM 4.1 mmol/L (3.5-5.1)
[2017-09-25] MEDS ORDERED: OSELTAMIVIR PHOSPHATE 6 MG/ML SUSP PO SCH (08:00)
[2017-09-25] MEDS ORDERED: METOPROLOL TARTRATE 100 MG TAB PO SCH ×2 (08:00→22:00)
--- NOTE | 2017-09-25 09:08 | Progress Note ---
Subjective Date of Service: Sep 25, 2017. Subjective pt feels improved but is still coughing, feels overall improved is negative for influenza Problem List Medical Problems: (1) COPD exacerbation Status: Acute (2) COPD with exacerbation Status: Acute (3) Elevated troponin Status: Acute (4) Pneumonia Status: Acute (5) Tachyarrhythmia Status: Acute (6) Viral upper respiratory illness Status: Acute Review of Systems Constitutional: No fever, No chills, No weakness, No fatigue Respiratory: + cough, + dyspnea on exertion, No sputum, No shortness of breath Cardiac: No chest pain, No edema Abdomen: No pain, No nausea, No vomiting, No diarrhea Male : No dysuria, No incontinence Neurologic: No memory loss, No weakness Objective Vital Signs Date Time Temp Pulse Resp B/P (MAP) Pulse Ox O2 Delivery O2 Flow Rate FiO2 09/25/17 07:40 72 18 91 Room Air 09/25/17 07:19 36.9 70 20 132/75 (94) 92 Room Air 09/25/17 02:07 73 18 98 Nasal Cannula 2.0 09/25/17 00:03 Nasal Cannula 2.0 09/24/17 23:33 37.3 80 18 103/63 91 09/24/17 23:30 26.8 75 18 100/57 (71) 94 Nasal Cannula 2.0 09/24/17 22:03 37.3 80 18 103/63 91 Room Air 09/24/17 20:48 37.2 78 18 100/60 91 Room Air 09/24/17 19:14 80 09/24/17 18:02 38.7 91 20 112/66 93 Room Air Physical Exam General Appearance: WD/WN, + mild distress Neck: supple, no JVD Respiratory/Chest: chest non-tender, + decreased breath sounds, + accessory muscle use Cardiovascular: regular rate, rhythm, no murmur Abdomen: normal bowel sounds, non tender, soft Extremities: no pedal edema, no calf tenderness Neurologic/Psychiatric: alert, oriented x 3 Laboratory Results Last 24 Hours Test 09/24/17 18:47 09/24/17 19:04 09/24/17 19:05 09/24/17 19:23 White Blood Count 6.59 K/uL Red Blood Count 4.46 M/uL Hemoglobin 14.0 g/dL Hematocrit 42.5 % Mean Corpuscular Volume 95.3 fL Mean Corpuscular Hemoglobin 31.4 pg Mean Corpuscular Hemoglobin Concent 32.9 g/dl Platelet Count 133 K/uL Mean Platelet Volume 11.9 fL Neutrophils (%) (Auto) 77.1 % Lymphocytes (%) (Auto) 10.8 % Monocytes (%) (Auto) 10.3 % Eosinophils (%) (Auto) 0.9 % Basophils (%) (Auto) 0.3 % Neutrophils # (Auto) 5.08 K/uL Lymphocytes # (Auto) 0.71 K/uL Monocytes # (Auto) 0.68 K/uL Eosinophils # (Auto) 0.06 K/uL Basophils # (Auto) 0.02 K/uL RDW Standard Deviation 53.0 fL RDW Coefficient of Variation 15.3 % Immature Granulocyte % (Auto) 0.6 % Immature Granulocyte # (Auto) 0.04 K/uL Sodium Level 141 mmol/L Potassium Level 3.8 mmol/L Chloride Level 107 mmol/L Carbon Dioxide Level 27 mmol/L Anion Gap 7.0 mmol/L Blood Urea Nitrogen 20 mg/dl Creatinine 1.18 mg/dl Est Creatinine Clear Calc Drug Dose 53.5 ml/min Estimated GFR () 66.7 Estimated GFR (Non- 57.5 BUN/Creatinine Ratio 16.6 Random Glucose 100 mg/dl Calcium Level 8.8 mg/dl Creatine Kinase MB 1.2 ng/ml Troponin I 0.045 ng/ml Creatine Kinase MB Ratio Influenza Type A Antigen Neg for Influ A Influenza Type B Antigen Neg for Influ B Lactic Acid Level 1.2 mmol/L Test 09/24/17 19:35 09/25/17 00:15 09/25/17 04:30 09/25/17 06:00 Procalcitonin < 0.05 ng/ml Troponin I 0.043 ng/ml Urine Color DK YELLOW Urine Appearance CLEAR Urine pH 5.0 Urine Specific [place] 1.033 Urine Protein TRACE Urine Glucose (UA) NEG Urine Ketones TRACE Urine Occult Blood 1+ Urine Nitrite NEG Urine Bilirubin NEG Urine Urobilinogen NEG Urine Leukocyte Esterase NEG Urine WBC (Auto) 1-5 /hpf Urine RBC (Auto) 5-10 /hpf Urine Hyaline Casts (Auto) 10-30 /lpf Urine Epithelial Cells (Auto) 20-30 /lpf Urine Bacteria (Auto) NEG White Blood Count 4.60 K/uL Red Blood Count 4.18 M/uL Hemoglobin 13.3 g/dL Hematocrit 40.0 % Mean Corpuscular Volume 95.7 fL Mean Corpuscular Hemoglobin 31.8 pg Mean Corpuscular Hemoglobin Concent 33.3 g/dl RDW Standard Deviation 53.4 fL RDW Coefficient of Variation 15.2 % Platelet Count 122 K/uL Mean Platelet Volume 11.3 fL Sodium Level 139 mmol/L Potassium Level 4.1 mmol/L Chloride Level 107 mmol/L Carbon Dioxide Level 23 mmol/L Anion Gap 9.0 mmol/L Blood Urea Nitrogen 26 mg/dl Creatinine 1.32 mg/dl Est Creatinine Clear Calc Drug Dose 47.4 ml/min Estimated GFR () 58.2 Estimated GFR (Non- 50.2 BUN/Creatinine Ratio 19.6 Random Glucose 180 mg/dl Calcium Level 8.3 mg/dl Magnesium Level 2.3 mg/dl Chemistry Specimen Hemolysis Assessment and Plan 82 y/o M acute on chronic respiratory failure and febrile illness suspect influenza Acute on chronic respiratory failure, Hx COPD - was given steroids in ER, continue nebulized meds and 02 protocol as needed. Febrile illness suspect pulmonary source, tamiflu stopped, pcr negative, azithormycin for bacterial bronchitis Chronic systolic CHF - clinically euvolemic - he takes Lasix PRN only -EF 25%, stop ivf, continue metoprolol, losartan, . CAD - cont B heriberto, ASA, Plavix, statin, Imdur - no clinical symptoms of acs Full code - Heparin prophylaxis
[2017-09-25] MEDS: ISOSORBIDE MONONITRATE 30 MG TABCR PO SCH (09:27)
[2017-09-25] MEDS: ASPIRIN 81 MG ECTAB PO SCH (09:28)
[2017-09-25] MEDS: CLOPIDOGREL BISULFATE 75 MG TAB PO SCH (09:28)
[2017-09-25] MEDS ORDERED: AZITHROMYCIN 250 MG TAB PO ONE (09:45)
[2017-09-25 11:26] LABS: INFLUENZA A PCR Neg for Influ A (NEG); INFLUENZA B PCR Neg for Influ B (NEG)
--- NOTE | 2017-09-25 15:20 | Hospitalist Progress Note ---
Hospitalist Progress Note Date of Service Sep 25, 2017. (Kary Corcoran .KYLE) Subjective Pt evaluation today including: conversation w/ patient, conversation w/ family , physical exam, chart review, lab review, review of inpatient medication list Voiding: no voiding problems Mr. Lackey is feeling much better today. He is coughing with production of clear sputum. He is not short of breath. He has been afebrile since yesterday afternoon. ROS Constitutional: no chills, aches, sweats or fever Respiratory: see HPI Cardiac: no chest pain, palpitations, edema, orthopnea or lightheadedness GI: no abdominal pain, nausea, vomiting, diarrhea or constipation : no dysuria or hesitancy Extremities: no joint pain or weakness Skin: no rash All other systems reviewed and negative (Kary Corcoran .KYLE) Medications Medications Administered Medications (Trade) Dose Ordered Sig/Nitin Route Start Time Stop Time Status Last Admin Dose Admin Sodium Chloride 1,000 ml @ 75 mls/hr [id number] IV 09/25/17 00:00 09/25/17 09:09 DC 09/25/17 00:32 75 MLS/HR Acetaminophen (Tylenol Tab) 1,000 mg NOW STAT PO 09/24/17 19:33 09/24/17 19:34 DC 09/24/17 19:47 1,000 MG Albuterol Sulfate (Ventolin 0.5% 2.5MG/0.5ML Neb) 2.5 mg STK-MED ONCE INH 09/24/17 19:42 09/24/17 19:43 DC 09/24/17 19:49 2.5 MG Methylprednisolone Sodium Succinate 60 mg/Syringe 0.96 ml @ 1.5 mls/min NOW STAT IV 09/24/17 20:16 09/24/17 20:17 DC 09/24/17 20:48 1.5 MLS/MIN Albuterol/ Ipratropium (Duoneb) 3 ml ONE STAT INH 09/24/17 20:16 09/24/17 20:17 DC 09/24/17 20:48 3 ML Aspirin (Ecotrin Tab) 81 mg DAILY PO 09/25/17 08:00 10/25/17 08:59 09/25/17 09:28 81 MG Clopidogrel Bisulfate (plAVix TAB) 75 mg DAILY PO 09/25/17 08:00 10/25/17 08:59 09/25/17 09:28 75 MG Isosorbide Mononitrate (Imdur Ext Rel Tab) 30 mg DAILY PO 09/25/17 08:00 10/25/17 08:59 09/25/17 09:27 30 MG Metoprolol Tartrate (Lopressor Tab) 100 mg DAILY PO 09/25/17 08:00 10/25/17 08:59 09/25/17 09:28 100 MG Albuterol/ Ipratropium (Duoneb) 3 ml Q6H INH 09/24/17 21:15 10/24/17 21:14 09/25/17 14:56 3 ML Oseltamivir Phosphate (Tamiflu Susp) 30 mg BID PO 09/25/17 08:00 09/30/17 08:59 09/25/17 09:29 30 MG Azithromycin (Zithromax Tab) 500 mg NOW ONCE PO 09/25/17 09:45 09/25/17 09:46 DC 09/25/17 10:27 500 MG (Kary Corcoran, KYLE) Objective Vital Signs Date Time Temp Pulse Resp B/P (MAP) Pulse Ox O2 Delivery O2 Flow Rate FiO2 09/25/17 14:57 75 18 91 Room Air 09/25/17 08:00 91 Room Air 2.0 09/25/17 07:40 72 18 91 Room Air 09/25/17 07:19 36.9 70 20 132/75 (94) 92 Room Air 09/25/17 02:07 73 18 98 Nasal Cannula 2.0 09/25/17 00:03 Nasal Cannula 2.0 09/24/17 23:33 37.3 80 18 103/63 91 09/24/17 23:30 26.8 75 18 100/57 (71) 94 Nasal Cannula 2.0 09/24/17 22:03 37.3 80 18 103/63 91 Room Air 09/24/17 20:48 37.2 78 18 100/60 91 Room Air 09/24/17 19:14 80 09/24/17 18:02 38.7 91 20 112/66 93 Room Air (Kary Corcoran CRNP) Physical Exam Notes: General: no distress Eyes: normal inspection, PERLL Respiratory: chest non tender, clear to auscultation, no respiratory distress, no accessory muscle use Cardiac: regular rate and rhythm, no rub or gallop, no murmur, no edema, no jvd GI/: active bowel sounds, no abd pain or tenderness, soft, non distended Extremities: normal range of motion, normal strength, non tender Neuro/Psych: alert and oriented x 3, normal mood and affect Skin: normal color, dry (Kary Corcoran ., RETAIL GREETER) Laboratory Results Last 24 Hours Test 09/24/17 18:47 09/24/17 19:04 09/24/17 19:05 09/24/17 19:23 White Blood Count 6.59 K/uL Red Blood Count 4.46 M/uL Hemoglobin 14.0 g/dL Hematocrit 42.5 % Mean Corpuscular Volume 95.3 fL Mean Corpuscular Hemoglobin 31.4 pg Mean Corpuscular Hemoglobin Concent 32.9 g/dl Platelet Count 133 K/uL Mean Platelet Volume 11.9 fL Neutrophils (%) (Auto) 77.1 % Lymphocytes (%) (Auto) 10.8 % Monocytes (%) (Auto) 10.3 % Eosinophils (%) (Auto) 0.9 % Basophils (%) (Auto) 0.3 % Neutrophils # (Auto) 5.08 K/uL Lymphocytes # (Auto) 0.71 K/uL Monocytes # (Auto) 0.68 K/uL Eosinophils # (Auto) 0.06 K/uL Basophils # (Auto) 0.02 K/uL RDW Standard Deviation 53.0 fL RDW Coefficient of Variation 15.3 % Immature Granulocyte % (Auto) 0.6 % Immature Granulocyte # (Auto) 0.04 K/uL Sodium Level 141 mmol/L Potassium Level 3.8 mmol/L Chloride Level 107 mmol/L Carbon Dioxide Level 27 mmol/L Anion Gap 7.0 mmol/L Blood Urea Nitrogen 20 mg/dl Creatinine 1.18 mg/dl Est Creatinine Clear Calc Drug Dose 53.5 ml/min Estimated GFR () 66.7 Estimated GFR (Non- 57.5 BUN/Creatinine Ratio 16.6 Random Glucose 100 mg/dl Calcium Level 8.8 mg/dl Creatine Kinase MB 1.2 ng/ml Troponin I 0.045 ng/ml Creatine Kinase MB Ratio Influenza Type A Antigen Neg for Influ A Influenza Type B Antigen Neg for Influ B Lactic Acid Level 1.2 mmol/L Test 09/24/17 19:35 09/25/17 00:15 09/25/17 04:30 09/25/17 06:00 Procalcitonin < 0.05 ng/ml Troponin I 0.043 ng/ml Urine Color DK YELLOW Urine Appearance CLEAR Urine pH 5.0 Urine Specific [place] 1.033 Urine Protein TRACE Urine Glucose (UA) NEG Urine Ketones TRACE Urine Occult Blood 1+ Urine Nitrite NEG Urine Bilirubin NEG Urine Urobilinogen NEG Urine Leukocyte Esterase NEG Urine WBC (Auto) 1-5 /hpf Urine RBC (Auto) 5-10 /hpf Urine Hyaline Casts (Auto) 10-30 /lpf Urine Epithelial Cells (Auto) 20-30 /lpf Urine Bacteria (Auto) NEG White Blood Count 4.60 K/uL Red Blood Count 4.18 M/uL Hemoglobin 13.3 g/dL Hematocrit 40.0 % Mean Corpuscular Volume 95.7 fL Mean Corpuscular Hemoglobin 31.8 pg Mean Corpuscular Hemoglobin Concent 33.3 g/dl RDW Standard Deviation 53.4 fL RDW Coefficient of Variation 15.2 % Platelet Count 122 K/uL Mean Platelet Volume 11.3 fL Sodium Level 139 mmol/L Potassium Level 4.1 mmol/L Chloride Level 107 mmol/L Carbon Dioxide Level 23 mmol/L Anion Gap 9.0 mmol/L Blood Urea Nitrogen 26 mg/dl Creatinine 1.32 mg/dl Est Creatinine Clear Calc Drug Dose 47.4 ml/min Estimated GFR () 58.2 Estimated GFR (Non- 50.2 BUN/Creatinine Ratio 19.6 Random Glucose 180 mg/dl Calcium Level 8.3 mg/dl Magnesium Level 2.3 mg/dl Chemistry Specimen Hemolysis Test 09/25/17 10:30 Influenza Type A (RT-PCR) Neg for Influ A Influenza Type B (RT-PCR) Neg for Influ B (Kary Corcoran CRNP) Assessment and Plan 82 y/o M Hx HTN, HPL, CAD, COPD, chronic systolic CHF. COPD exacerbation/viral respiratory illness - Flu pcr negative - discontinue Tamiflu - continue azithromycin, nebs - on room air - no need for steroids at this time CHF - continue lasix prn - does not appear to be fluid overloaded - Cont B heriberto, ARB. CAD - cont B heriberto, ASA, Plavix, statin, Imdur - Trop negative x 3 - no chest pain Full code - Heparin prophylaxis (Kary Corcoran ., KYLE)
[2017-09-25] MEDS ORDERED: COUGH DROP (SUGAR FREE) LOZ 24 LOZ/1 BOX LOZ PRN (16:00)
[2017-09-25] MEDS ORDERED: PROMETHAZINE HCL 12.5 MG/10 ML UDP PO PRN (16:00)
[2017-09-25] MEDS ORDERED: FUROSEMIDE 40 MG TAB PO PRN (20:15)
[2017-09-25] MEDS ORDERED: LOSARTAN POTASSIUM 25 MG TAB PO SCH (21:00)
[2017-09-25] MEDS ORDERED: RANITIDINE HCL 150 MG TAB PO SCH (21:00)
[2017-09-25] MEDS ORDERED: SIMVASTATIN 40 MG TAB PO SCH (21:00)
[2017-09-25] MEDS: METOPROLOL TARTRATE 50 MG TAB PO SCH (22:16)
[2017-09-26 01:42] VITALS: PULSE 80; O2SAT 92
[2017-09-26] MEDS: ALBUT/IPRATROP 3MG/0.5MG NEB 3 ML VIAL INH SCH ×2 (01:42→07:08)
[2017-09-26 07:08] VITALS: PULSE 81; O2SAT 95
[2017-09-26] MEDS: ASPIRIN 81 MG ECTAB PO SCH (07:41)
[2017-09-26] MEDS: ISOSORBIDE MONONITRATE 30 MG TABCR PO SCH (07:41)
[2017-09-26] MEDS: CLOPIDOGREL BISULFATE 75 MG TAB PO SCH (07:42)
[2017-09-26] MEDS: METOPROLOL TARTRATE 50 MG TAB PO SCH (07:42)
[2017-09-26 07:54] VITALS: BP 118/68; PULSE 84; TEMP 36.9; O2SAT 95
[2017-09-26] MEDS ORDERED: AZITHROMYCIN 250 MG TAB PO SCH (08:00)
[2017-09-26 08:01] VITALS: O2SAT 95
[2017-09-26] MEDS ORDERED: TPRSR100 PO (10:22)
[2017-09-26] MEDS ORDERED: LSX40 PO (10:22)
[2017-09-26] MEDS ORDERED: AZIT-57 PO (10:22)
--- NOTE | 2017-09-26 10:24 | Discharge Instructions ---
Discharge Instructions Date of Service Sep 26, 2017. Admission Reason for Admission: Fever, Shortness Of Breath Discharge Discharge Diagnosis / Problem: COPD exacerbation Discharge Goals Goal(s): Improve disease control Activity Recommendations Activity Limitations: resume your previous activity . Instructions / Follow-Up Instructions / Follow-Up Please follow with your primary care provider within about a week Current Hospital Diet Patient's current hospital diet: AHA Diet (Heart Healthy), Low Sodium Diet (2gm Na) Discharge Diet Recommended Diet: AHA Diet (Heart Healthy), Low Sodium Diet (2gm Na) Procedures Procedures Performed: Chest Xray Pending Studies Studies pending at discharge: no Medical Emergencies . Who to Call and When: Medical Emergencies: If at any time you feel your situation is an emergency, please call 911 immediately. . Non-Emergent Contact Non-Emergency issues call your: Primary Care Provider Call Non-Emergent contact if: you have a fever, you have any medication questions . . "Provider Documentation" section prepared by Kary Corcoran. . VTE Core Measure Inpt VTE Proph given/why not?: Unfractionated heparin SQ
--- NOTE | 2017-09-26 10:33 | Discharge Summary ---
Discharge Summary Date of Service Sep 26, 2017. Discharge Summary Admission Date: Sep 24, 2017 at 21:33 Discharge Date: Sep 26, 2017 Discharge Disposition: Home Principal Diagnosis: COPD exacerbation Problems/Secondary Diagnoses: HTN, HPL, CAD, chronic systolic CHF. Immunizations: Have You Had Influenza Vaccine: No Influenza Vaccine Date: May 28, 2011 History of Tetanus Vaccine?: Yes Tetanus Immunization Date: Sep 02, 2003 History of Pneumococcal: Yes Pneumococcal Date: Aug 02, 2005 History of Hepatitis B Vaccine: No Procedures: CHEST ONE VIEW PORTABLE CLINICAL HISTORY: SOB dyspnea COMPARISON STUDY: 06/15/2017 FINDINGS: Mild stable cardiomegaly. Prior median sternotomy. Cardiac pacemaker/defibrillator in good position. Small fixed lateral hernia. Lungs are clear. Diaphragms smooth. IMPRESSION: Chronic and postoperative change. No acute process Medication Reconciliation New Medications: Metoprolol Succinate (Toprol Xl) 100 Mg Tabcr 1 TAB PO DAILY for 30 Days, #30 TAB 5 Refills Azithromycin (Azithromycin) 250 Mg Tab 250 MG PO QAM for 3 Days, #3 TAB Furosemide (Furosemide) 40 Mg Tab 40 MG PO DAILY PRN for EDEMA for 30 Days, #30 TAB Continued Medications: Albuterol Hfa (Ventolin Hfa) 200 Puffs/22617 Mcg Aers 1-2 PUFFS INH DAILY PRN for SOB/Wheezing, #1 INHALER Albuterol Sulfate (Albuterol Sulfate) 1.25 Mg/3 Ml Neb 1 VIAL NEB BID for 5 Days, #75 ML Ascorbic Acid (Vitamin C) 100 Mg Tab 100 MG PO BID Aspirin (Aspirin Ec) 81 Mg Tab 81 MG PO DAILY Cholecalciferol (Vitamin D3) 1,000 Unit Tab 1000 MG PO DAILY for 90 Days, TAB 3 Refills Clopidogrel (Plavix) 75 Mg Tab 75 MG PO DAILY, TAB Coenzyme Q10 (Ubidecarenone) (Coq-10) 100 Mg Cap 100 MG PO QPM Fish Oil ([place]-3) 1 Ea Cap 1200 MG PO DAILY Eabbalysyok-Uxzqirqoves-Dmv C- (Glucosamine Chondroitin) 1 Cap Cap 1 CAP PO BID take 1600/1100 mg twice a day Isosorbide Mononitrate Ext Rel (Imdur Ext Rel) 30 Mg Tabcr 30 MG PO DAILY Lecithin (Lecithin 3500) 1,200 Mg Cap 1200 MG PO DAILY Losartan Potassium (Cozaar) 25 Mg Tab 25 MG PO QPM for 30 Days, TAB 5 Refills Mometasone Furoate-Formoterol (Dulera 200/5 Mcg) 1 Aer Aer 2 PUFFS INH BID for 30 Days, #13 GM 5 Refills Multivitamin (Multivitamin) Tab 1 TAB PO DAILY, TAB Nitroglycerin (Nitrostat) 0.4 Mg Tab 0.4 MG UT PRN Ranitidine (Zantac) 150 Mg Tab 75 MG PO QPM, TAB Simvastatin (Zocor) 40 Mg Tab 40 MG PO QPM Terazosin Hcl (Hytrin) 2 Mg Cap 2 MG PO QPM, CAP Discontinued Medications: Furosemide (Lasix) 40 Mg Tab 45 MG PO DAILY PRN for EDEMA, TAB Metoprolol Tartrate (Lopressor) (Lopressor) 100 Mg Tab 100 MG PO DAILY, TAB Discharge Exam ROS Constitutional: no chills, aches, sweats or fever Respiratory: no sob,mild cough, no sputum, or wheezing Cardiac: no chest pain, palpitations, edema, orthopnea or lightheadedness GI: no abdominal pain, nausea, vomiting, diarrhea or constipation : no dysuria or hesitancy Extremities: no joint pain or weakness Skin: no rash All other systems reviewed and negative PE General: no distress Eyes: normal inspection, PERLL Respiratory: chest non tender, faint expiratory wheezes in bases, no respiratory distress, no accessory muscle use Cardiac: regular rate and rhythm, no rub or gallop, no murmur, no edema, no jvd GI/: active bowel sounds, no abd pain or tenderness, soft, non distended Extremities: normal range of motion, normal strength, non tender Neuro/Psych: alert and oriented x 3, normal mood and affect Skin: normal color, dry Hospital Course 82 y/o M Hx HTN, HPL, CAD, COPD, chronic systolic CHF. Patient presented to the ED with fever, cough and sob. COPD exacerbation/viral respiratory illness - Flu pcr negative - discontinued Tamiflu - continue azithromycin started 09/25 x 5 days, nebs - on room air - no need for steroids at this time - he feels he is at about his baseline respiratory status today. Ambulated halls without difficulty CHF - continue lasix prn - does not appear to be fluid overloaded - Cont B heriberto, ARB. CAD - cont B heriberto, ASA, Plavix, statin, Imdur - Trop negative x 3 - no chest pain BROKE WORKER Physician Supervision Note: I interviewed and examined the patient. Discussed with Kary Corcoran BROKE WORKER and agree with findings and plan as documented in the note. Any exceptions or clarifications are listed here: None Patient looks well today's accompanied by his and daughter at the bedside he has no complaint or problems he does still have a slight cough His vital signs show temperature 36 9 pulse 84 respirations rate 20 BP 118/68 O2 sat on room air is acceptable His lungs are clear without evidence of focal air loss or wheeze Patient is discharged with a COPD exacerbation bronchitis on azithromycin with follow-up with his primary care provider Documented By: Ck Kim Total Time Spent: Greater than 30 minutes This includes examination of the patient, discharge planning, medication reconciliation, and communication with other providers. Discharge Instructions Please refer to the electronic Patient Visit Report (Discharge Instructions) for additional information. Follow-Up Pcp in about a week
[2017-09-26 11:52] VITALS: BP 102/64; PULSE 72; TEMP 36.8; O2SAT 94
[2017-09-26 13:46] VITALS: BP 102/64; PULSE 72; TEMP 36.8; O2SAT 94
== END 2017-09-26 14:18 | disposition home or self-care (01) | DRG 190 ==
LOC: C.EDB 17:45 → C.MS4W 21:33 → EDBEDREQ 21:44 → ENRESERV 22:30
PROVIDERS: ADMIT Internal Medicine; ATTEND Internal Medicine
DX: J44.1 Chronic obstructive pulmonary disease with (acute) exacerbation (principal); J96.20 Acute and chronic respiratory failure, unspecified whether with hypoxia or hypercapnia; I50.22 Chronic systolic (congestive) heart failure; J06.9 Acute upper respiratory infection, unspecified; J44.0 Chronic obstructive pulmonary disease with (acute) lower respiratory infection; J20.8 Acute bronchitis due to other specified organisms; I11.0 Hypertensive heart disease with heart failure; I25.10 Atherosclerotic heart disease of native coronary artery without angina pectoris; J45.909 Unspecified asthma, uncomplicated; I25.2 Old myocardial infarction; E78.5 Hyperlipidemia, unspecified; K21.9 Gastro-esophageal reflux disease without esophagitis; E66.3 Overweight; Z51.81 Encounter for therapeutic drug level monitoring; Z79.899 Other long term (current) drug therapy; Z79.82 Long term (current) use of aspirin; Z95.1 Presence of aortocoronary bypass graft; Z95.0 Presence of cardiac pacemaker; Z68.30 Body mass index [BMI] 30.0-30.9, adult; Z88.8 Allergy status to other drugs, medicaments and biological substances; Z91.011 Allergy to milk products; Z82.49 Family history of ischemic heart disease and other diseases of the circulatory system

== ENCOUNTER → 2017-12-27 | Outpatient (CLI) | payer BC, OTHER ==
[~2017-12-27] MED LIST changes: +AZIT-57 PO; -FLUT1INH INH; -FRS/40 PO; +GLUC1CAP35 PO; -GLUC1TAB22 PO; -IMDSR60 PO; +ISOS30TA35 PO; +LECI1CAP3 PO; -LECIGRA PO; +LSX40 PO; -METO100T14 PO; +MULT-506 PO; -MULT-513 PO; +TPRSR100 PO
[2017-12-27 13:06] LABS: ALBUMIN 3.5 gm/dl (3.4-5.0); ALKALINE PHOSPHATASE 64 U/L (45-117); ALT/SGPT 25 U/L (12-78); AST/SGOT 25 U/L (15-37); BLOOD UREA NITROGEN 49 mg/dl (7-18); CALCIUM 9.1 mg/dl (8.5-10.1); CARBON DIOXIDE 28 mmol/L (21-32); CHOLESTEROL 147 mg/dl (0-200); CREATININE 1.54 mg/dl (0.60-1.40); GLUCOSE 94 mg/dl (70-99); LDL CHOLESTEROL CALCULATED 71 mg/dl; POTASSIUM 3.2 mmol/L (3.5-5.1); SODIUM 142 mmol/L (136-145); TOTAL PROTEIN 6.7 gm/dl (6.4-8.2)
== END | disposition home or self-care (01) ==
LOC: C.LABPVFM 08:23
PROVIDERS: ATTEND Family Medicine
DX: I10 Essential (primary) hypertension (principal); E78.5 Hyperlipidemia, unspecified; I25.10 Atherosclerotic heart disease of native coronary artery without angina pectoris

== ENCOUNTER → 2018-03-15 | Outpatient (CLI) | payer BC ==
[2018-03-15 16:33] LABS: HEMOGLOBIN 12.8 g/dL (14.0-18.0); MEAN CORPUSCULAR HEMOGLOBIN 30.8 pg (25-34); MEAN CORPUSCULAR HGB CONC 32.8 g/dl (32-36); MEAN PLATELET VOLUME 12.1 fL (7.4-10.4); PLATELET COUNT 143 K/uL (130-400); RED CELL DISTRIBUTION WIDTH CV 15.6 % (11.5-14.5); RED CELL DISTRIBUTION WIDTH SD 53.2 fL (36.4-46.3); WHITE BLOOD COUNT 6.95 K/uL (4.8-10.8)
[2018-03-15 16:58] LABS: BLOOD UREA NITROGEN 45 mg/dl (7-18); CARBON DIOXIDE 27 mmol/L (21-32); CREATININE 1.37 mg/dl (0.60-1.40); GLUCOSE 94 mg/dl (70-99); POTASSIUM 3.4 mmol/L (3.5-5.1); SODIUM 141 mmol/L (136-145)
== END | disposition home or self-care (01) ==
LOC: C.LAB1850 15:48
PROVIDERS: ATTEND Internal Medicine Cardiovascular Disease
DX: I47.2 Ventricular tachycardia (principal)

== ENCOUNTER 2019-03-01 13:48 | Inpatient (IN) ==
[2019-03-01] MEDS ORDERED: SODIUM CHLORIDE 0.9% 1000ML 250 ML IV ONE ×2 (14:20→19:58)
[2019-03-01] MEDS ORDERED: SODIUM CHLORIDE 0.9% 1000ML 1,000 ML IV SCH (14:30)
[2019-03-01 14:32] LABS: Basophils # (auto) 0.02 K/uL (0-0.2); Basophils % (auto) 0.2 %; Eosinophils # (auto) 0.09 K/uL (0-0.5); Eosinophils % (auto) 1.1 %; Hematocrit (blood only) 32.4 % (42-52); Hemoglobin 10.7 g/dL (14.0-18.0); Immature Granulocytes # (auto) 0.11 K/uL (0.00-0.02); Immature Granulocytes % (auto) 1.4 %; Lymphocytes # (auto) 1.06 K/uL (1.2-3.4); Lymphocytes % (auto) 13.1 %; Mean Corpuscular Volume 100.3 fL (80-100); Mean Platelet Volume 10.5 fL (7.4-10.4); Monocytes # (auto) 0.74 K/uL (0.11-0.59); Monocytes % (auto) 9.1 %; Neutrophils # (auto) 6.08 K/uL (1.4-6.5); Neutrophils % (auto) 75.1 %; Platelet Count 177 K/uL (130-400); RDW Coefficient of Variation 14.3 % (11.5-14.5); RDW Standard Deviation 52.7 fL (36.4-46.3); Red Blood Count 3.23 M/uL (4.7-6.1)
[2019-03-01 14:40] LABS: Alanine Aminotransferase 45 U/L (12-78); Albumin Level 3.8 gm/dl (3.4-5.0); Aspartate Aminotransferase 43 U/L (15-37); BUN Creatinine Ratio 21.9 (10-20); Blood Urea Nitrogen 97 mg/dl (7-18); Calcium 9.5 mg/dl (8.5-10.1); Carbon Dioxide 28 mmol/L (21-32); Chloride 102 mmol/L (98-107); Est GFR (African American) 13.3; Est GFR (Non-African American) 11.5; Glucose 96 mg/dl (70-99); Potassium 3.5 mmol/L (3.5-5.1); Sodium 139 mmol/L (136-145)
--- NOTE | 2019-03-01 14:43 | XRay Report ---
XR chest 1V portable CLINICAL HISTORY: hypotension COMPARISON STUDY: 09/24/2017 FINDINGS: The heart is enlarged. There is retrocardiac opacity consistent with a hiatal hernia. There is a left subclavian pacer/defibrillator present. There is no failure. There is no focal pulmonary c onsolidation.[There are postsurgical changes of a midline sternotomy. IMPRESSION: 1. Cardiomegaly 2. Moderate hiatal hernia 3. No acute findings Electronically signed by: Kike Fonseca M.D. 03/01/2019 2:42 PM
[2019-03-01 14:44] LABS: Albumin Globulin Ratio 1.2 (0.9-2); Alkaline Phosphatase 58 U/L (45-117); Bilirubin,Total 0.6 mg/dl (0.2-1); Globulin 3.2 gm/dl (2.5-4.0); NT Pro B Type Natriuretic Pept 1386 pg/ml (0-1800); Troponin I 0.025 ng/ml (0-0.045)
[2019-03-01 14:45] LABS: Partial Thromboplastin Ratio 0.8; Partial Thromboplastin Time 22.4 Seconds (21.0-31.0); Prothrombin Time 10.4 Seconds (9.0-12.0)
--- NOTE | 2019-03-01 17:03 | History & Physical Report ---
Date of Service March 01, 2019 Assessment & Plan (1) Acute renal failure: Seems likely related to increased lasix/metolazone Levaquin likely also was a factor 250cc bolus + IVF in the ED Will maintain on gentle IVF and repeat labs in AM Still making urine, but less Will hold on nephro c/s given no prior hx of renal disease and likely return to normal with holding diuretics Baseline cr 2/ was 1.3 -> 2.4 on 02/14 -> 3.2 on 02/24 (2) Lightheaded: Seems likely related to volume depletion/dehydration due to above Monitor PT/OT (3) Hypokalemia: Has been on K recently due to increased lasix Will continue for now despite holding lasix given K is borderline low at 3.5 on admission Monitor (4) CHF (congestive heart failure): Last ECHO 12/2017 in [facility] EF 25% Holding diuretics for now, will need new plan for resuming t/c repeat ECHO, although unlikely to change current management (5) HTN (hypertension): continue home meds Metoprolol held recently due to lightheadedness and hypoTN, but was restarted when BP was elevated (6) Traumatic wound: Follows with [facility] Finished almost a full course of levaquin for cellulitis proph (7) GERD (gastroesophageal reflux disease): continue home meds (8) HLD (hyperlipidemia): continue home meds (9) COPD (chronic obstructive pulmonary disease): continue home meds HS O2 use (10) CAD (coronary artery disease): continue home meds aspirin 81mg, plavix (11) S/P placement of cardiac pacemaker: Stable (12) DVT prophylaxis: SCDs, Heparin for DVT proph History of Present Illness Primary Care Provider: Stephanie Guajardo MD 83 y/o M c/o worsening lightheadedness and weakness. Pt states that this has been ongoing for about 2 weeks. He was seen in the ED 2 weeks ago for a fall that resulted in some significant skin tearing and has been seen by the wound care clinic for this as well. Pt has been working with Dr. Bhat for CHF management. He was not maintaining dry weights and had a lot of abd swelling with some LE swelling. Not much SOB. Pt and family state that most of his CHF fluid retention is in the abd generally. Dr. Eaton has been increasing his lasix and metolazone dosing for this reason. His metolazone was changed from PRN to QD for 2 weeks. As pt's cr was increasing, it was stopped on 02/25. His dry weight target was increased by 2 lbs as well. For the last 4 days pt has been under his dry weight. He feels weak and tired. He has not been eating much or moving around much due to becoming lightheaded with change in positioning. He saw his PCP who noted some low BPs and stopped his metoprolol. After 3 days his BP was improved and this was restarted. He has been able to urinate without issue, but notes decreased output. Pt's only other hx of renal issues is a stone 06/2018. He was seen by urology for this, but no hx of needing to see nephrology. Pt states he does feel a bit improved s/p IVF in the ED. He has not been OOB yet though. Pt denies fever, chest pain, abd pain, n/v/c/d, LE pain or swelling. Pt had been started on levaquin s/p fall and skin lacerations for cellulitis prophylaxis. He continued to feel worse on this and ultimately stopped taking it. He had taken all but the last dose however. Allergies Allergy/AdvReac Type Severity Reaction Status Date / Time levofloxacin [From Levaquin] AdvReac Severe dizzy/upset Unverified 03/01/19 14:35 stomach fluticasone AdvReac Intermediate DIZZY Unverified 03/01/19 14:35 milk AdvReac Intermediate DIZZY Unverified 03/01/19 14:35 salmeterol AdvReac Intermediate DIZZY Unverified 03/01/19 14:35 Home Medications Home Medications Medication Instructions Recorded Confirmed Type Vitamin C 100 mg PO BID 05/30/18 03/01/19 History cholecalciferol (vitamin D3) 1,000 unit PO QAM 05/30/18 03/01/19 History [Vitamin D3] coenzyme Q10 [CoQ-10] 100 mg PO QAM 05/30/18 03/01/19 History glucosamine-chondroitin 1 tab PO BID 05/30/18 03/01/19 History lecithin 1,200 mg PO BID 05/30/18 03/01/19 History nitroglycerin [Nitrostat] 0.4 mg SUBLINGUAL DIRECTED PRN 05/30/18 03/01/19 History omega 8-tga-ldo-fish oil [Fish Oil] 1,200 mg PO QAM 05/30/18 03/01/19 History ranitidine HCl 75 mg PO HS 05/30/18 03/01/19 History albuterol sulfate HFA 90 1 puff INHALATION DAILY PRN 06/20/18 03/01/19 History mcg/actuation aerosol inhaler metolazone 5 mg tablet 5 mg PO DAILY PRN 06/20/18 03/01/19 History aspirin 81 mg tablet,delayed 81 mg PO [id number] tab 08/14/18 03/01/19 History release amiodarone 200 mg tablet 200 mg PO QAM #90 tab 02/15/19 03/01/19 Rx clopidogrel 75 mg tablet 75 mg PO QAM #90 tab 02/15/19 03/01/19 Rx furosemide 40 mg tablet 40 mg PO QAM #90 tab 02/15/19 03/01/19 Rx metoprolol succinate ER 100 mg 50 mg PO BID #180 tab 02/15/19 03/01/19 Rx tablet,extended release 24 hr mometasone-formoterol HFA 200 2 puff INHALATION Q12H #13 gm 02/15/19 03/01/19 Rx mcg-5 mcg/actuation aerosol inhaler simvastatin 40 mg tablet 40 mg PO HS #90 tab 02/15/19 03/01/19 Rx levofloxacin 750 mg tablet 750 mg PO Q48H 10 Days #10 tab 02/21/19 03/01/19 Rx isosorbide mononitrate 30 mg PO QDL 03/01/19 03/01/19 History multivitamin 1 tab PO QAM 03/01/19 03/01/19 History potassium chloride [Klor-Con M20] 20 meq PO PM 03/01/19 03/01/19 History Past Med/Surg History Medical History Traumatic open wound of left lower leg with delayed healing (Acute) SIRS (systemic inflammatory response syndrome) (Acute 02/22/14) Ischemic cardiomyopathy Non-ST elevated myocardial infarction HTN (hypertension) Left kidney mass Ureterolithiasis (Acute) GERD (gastroesophageal reflux disease) HLD (hyperlipidemia) CAD (coronary artery disease) (Chronic) COPD (chronic obstructive pulmonary disease) (Chronic) Asthma (Chronic) CHF (congestive heart failure) Duodenal ulcer GERD (gastroesophageal reflux disease) Hyperlipidemia Hypertension Surgical History Hx of CABG (Resolved) S/P placement of cardiac pacemaker (Chronic) S/P CABG (coronary artery bypass graft) S/P total hip arthroplasty Family History Other FHx: heart disease Family history of high blood pressure Social History Preferred Language: Faroese Communication Ability: Effective Visual Impairment: No Limitations Beliefs That Will Affect Care: Zoroastrianism Zoroastrianism Beliefs: sabianist marital status: Current Living Situation: Spouse current occupational status: retired Feels Safe at Home: Yes Smoking Status: Never smoker Hx Alcohol Use: No Hx Substance Use: No Review of Systems Review of Systems: Pertinent positives and negatives reviewed in HPI--all others negative Physical Exam Constitutional: WD/WN, vitals as above Eyes: normal visual grande by confrontation and + anicteric sclerae Neck: normal visual inspection and trachea midline Respiratory: normal respiratory effort, lungs clear to auscultation no respiratory distress Auscultation: no crackles and no wheezes Cardiovascular: Rate/Rhythm: regular rate and regular rhythm Gastrointestinal (Abdomen): Inspection/Auscultation: + abdomen distended Percussion/Palpation: abdomen soft; abdomen nontender Musculoskeletal: Head/Neck/Chest: normocephalic and head atraumatic negative for edema, peripheral pulses intact Skin: no rashes, warm and dry + turgor decreased and + dry skin Trauma: + contusion Neurologic: awake; not confused Speech / Cognition: normal speech Psychiatric: A+Ox3, euthymic affect Results & Data Vital Signs (Past 12 Hours) Vital Signs Temp Pulse Resp BP Pulse Ox 03/01/19 16:00 73 21 81/57 L 94 03/01/19 15:52 71 18 83/51 L 94 03/01/19 15:30 70 15 88/56 L 95 03/01/19 15:23 81 19 99/60 L 96 03/01/19 15:00 117 H 15 87/61 L 95 03/01/19 14:45 77 13 93/56 L 03/01/19 14:36 70 12 89/59 L 95 03/01/19 14:30 70 17 80/59 L 97 03/01/19 14:26 76 18 92/59 L 97 03/01/19 14:16 20 85/51 L 03/01/19 14:15 77 17 77/41 L 03/01/19 14:12 93 H 19 70/54 L 03/01/19 13:53 36.6 C 72 20 74/50 L 99 Diagnostic Findings CXR: moderate hiatal hernia, no signs of fluid overload Code Status & VTE Plan Code Status Full code, although pt states no prolonged mechanical life support, feeding tubes, etc. Family is present and agree. PG Care Time/CCT Total # of Minutes Spent Total Time Spent with Patient: Total time spent is greater than 50% in coordination of care (as documented) at patient's floor/unit and/or counseling patient: (1) HTN (hypertension) Hypertension type: unspecified Qualified Code(s): I10 - Essential (primary) hypertension (2) Acute renal failure Acute renal failure type: unspecified Qualified Code(s): N17.9 - Acute kidney failure, unspecified
[2019-03-01] MEDS ORDERED: NITROGLYCERIN SL 0.4 MG/TAB TAB SL PRN (17:33)
[2019-03-01] MEDS ORDERED: ONDANSETRON INJ 2 MG/ML 2 ML VIAL IV PRN (17:33)
[2019-03-01] MEDS ORDERED: MAGNESIUM HYDROXIDE SUSP 30 ML UDC PO PRN (17:33)
[2019-03-01] MEDS ORDERED: ALBUTEROL HFA 8 GM INHALER INH PRN (17:33)
[2019-03-01] MEDS ORDERED: ACETAMINOPHEN 325 MG TAB PO PRN (17:33)
[2019-03-01 18:07] LABS: Appearance Urine Cloudy (Clear); Bacteria Urine Automated Negative (Negative); Bilirubin Urine Negative (Negative); Blood Urine Negative (Negative); Color Urine Yellow; Glucose Urine UA Negative (Negative); Ketones Urine Negative (Negative); Leukocyte Esterase Urine Negative (Negative); Nitrite Urine Negative (Negative); Protein Urine Negative (Negative); RBC Urine Automated 0-4 /hpf (0-4); Specific Gravity Urine 1.018 (1.000-1.030); Urobilinogen Urine Negative (Negative)
[2019-03-01] MEDS ORDERED: NSS + 20MEQ KCL 20 MEQ/1,000 ML BAG IV SCH (19:00)
[2019-03-01] MEDS: SIMVASTATIN 40 MG TAB PO SCH (20:38)
[2019-03-01] MEDS: ASCORBIC ACID 500 MG TAB PO SCH (20:39)
[2019-03-01] MEDS: POTASSIUM CHLORIDE 20 MEQ TABCR PO SCH (20:39)
[2019-03-01] MEDS: METOPROLOL SUCC 50MG EXT REL TAB PO SCH (20:39)
[2019-03-01] MEDS: GLUCOSAMINE SULFATE 500 MG CAP PO SCH (20:40)
[2019-03-01] MEDS: HEPARIN SOD 5,000 UNIT/0.5 ML VIAL SQ SCH (20:41)
[2019-03-01] MEDS ORDERED: NON-FORMULARY MEDICATION (Lecithin 1,200 MG) PO SCH (21:00)
--- NOTE | 2019-03-01 23:50 | Emergency Department Note ---
Entered by Pati Forman acting as a scribe for ED Provider Note CHIEF COMPLAINT: Dizziness HISTORY OF PRESENT ILLNESS: The patient is a 83 year old male who presents to the Emergency Room with complaints of persistent dizziness for a week now. The patient states that he has not had energy for 2 week now because of his CHF. The patient's son claims that his blood pressure has been around 90/70 and downwardly trending in the pa st few days. The patient states that he has been in the ER recently for a fall where he got a wound on his arm and ecchymosis on his left eye. The patient states that he was on the antibiotic, Levaquin, to mari off the infection on his arm and took the last dose 2 days ago. The patient also states that he is on the Lasix, Metolazone, and has been taking a booster to improve his kidney levels. He reports that he finds some back pain while standing due to his kidney stone removal about 10 months ago. Pt denies LOC, headache, fevers, chills, diaphoresis, visual changes, neck pain, chest pain, breathing difficulties, vomiting, abdominal pain, melena, hematochezia, urinary symptoms, numbness, lym phadenopathy, rash, or other complaints. REVIEW OF SYSTEMS: See HPI for pertinent positives and negatives. A total of ten systems were reviewed and were otherwise negative. PMHx/PSHx: CHF UTI HTN Kidney stone removal SOCIAL HISTORY: Patient lives at home. PHYSICAL EXAM: GENERAL: Awake, alert, tired-appearing, in no distress HENT: Normocephalic, atraumatic. Oropharynx unremarkable. EYES: PERRL. Pale conjunctiva. Sclera non-icteric. Ecchymosis on left eye. NECK: Inspection normal. Non-tender. Supple. No nuchal rigidity. FROM. No masses. RESPIRATORY: Clear to auscultation. No wheezes. No rales. Normal respiratory effort. CARDIAC: Normal rate. Normal rhythm. No murmurs. No rubs. Extremities warm and well perfused. Pulses equal. No JVD. GI: Soft, non-distended. No tenderness to palpation. No rebound or guarding. No masses. RECTAL: Deferred. MUSCULOSKELETAL: Atraumatic. Chest examination reveals no tenderness. The back is symmetrical on inspection without obvious abnormality. There is no CVA tenderness to palpation. No joint edema. Ecchymosis on left pectoral region. UPPER EXTREMITIES: Ecchymosis on left pectoral region. Healing wounds on left hand without signs of infection. LOWER EXTREMITIES: Calves are equal size bilaterally and non-tender. 1+ edema. No discoloration. NEURO: Normal sensorium. No sensory or motor deficits noted. SKIN: No rash or jaundice noted. EMERGENCY DEPARTMENT COURSE: 1415: Past medical records reviewed. The patient was evaluated in room A4B, and a complete history and physical examination were performed. 1528: I reevaluated the patient at this time and he is resting comfortably. I informed the patient of the test results and treatment plan at this time. 1530: I discussed the patients case with Dr. Tay, [facility]. She agreed to admit the patient for further manangement and treatment. MEDICAL DECISION MAKING: A4 Prior records/ancillary studies reviewed. The patient has a mild anemia. Nursing notes reviewed and agree them. Additional history obtained from family. The patient's history was concerning for weakness. Differential diagnosis: Etiologies such as CHF, dehydration, metabolic, infection, hypo/hyperglycemia, electrolyte abnormalities, cardiac sources, intracerebral event, toxicologic, neurologic, as well as others were entertained. Physical examination: As above. ER treatment provided: IV Lock Normal saline hydration Normal saline bolus 250 mL On reassessment the patient felt better. Diagnostics interpretation by me: ECG: Paced rhythm The labs revealed an unremarkable CBC except for mild anemia. The patient's chemistry panel revealed a significant elevation of his creatinine to 4.44. This is concerning for acute renal failure. Imaging studies: Chest imaging shows cardiomegaly. No acute process. Consultation: A consultation was placed with the [facility] hospitalist. The case was discussed and diagnostics were reviewed. The patient was evaluated in the ER for further treatment. IMPRESSION: Hypertension, dizziness, anemia, acute renal failure PLAN: The patient was admitted for further management. The scribe's documentation has been prepared under my direction and personally reviewed by me in its entirety. I confirm that the note above accurately reflects all work, treatment, procedures, and medical decision making performed by me. Impression & Plan HTN (hypertension), Dizziness, Anemia, Acute renal failure Past Med/Surg History Medical History Traumatic open wound of left lower leg with delayed healing (Acute) SIRS (systemic inflammatory response syndrome) (Acute 02/22/14) Ischemic cardiomyopathy Non-ST elevated myocardial infarction HTN (hypertension) Left kidney mass Ureterolithiasis (Acute) GERD (gastroesophageal reflux disease) HLD (hyperlipidemia) CAD (coronary artery disease) (Chronic) COPD (chronic obstructive pulmonary disease) (Chronic) Asthma (Chronic) CHF (congestive heart failure) Duodenal ulcer GERD (gastroesophageal reflux disease) Hyperlipidemia Hypertension Surgical History Hx of CABG (Resolved) S/P placement of cardiac pacemaker (Chronic) S/P CABG (coronary artery bypass graft) S/P total hip arthroplasty Family History Other FHx: heart disease Family history of high blood pressure Social History Preferred Language: Slovak Communication Ability: Effective Visual Impairment: No Limitations Beliefs That Will Affect Care: Tenriism Tenriism Beliefs: Jehovah Witness, no blood transfusions marital status: Current Living Situation: Spouse current occupational status: retired Feels Safe at Home: Yes Smoking Status: Never smoker Second Hand Exposure: No Hx Alcohol Use: No Hx Substance Use: No Results & Data Vital Signs Vital Signs - 24 hr 03/01/19 13:53 03/01/19 14:12 03/01/19 14:15 Temperature 36.6 C Temperature Source Oral Sepsis Recent Fever Within 48 Hours No Sepsis Action Taken by Nursing No Action Required Pulse Rate - Lying Pulse Rate - Sitting Pulse Rate 72 93 H 77 Respiratory Rate 20 19 17 Respiratory Effort / Characteristics Non-Labored Respiratory Depth Normal Blood Pressure - Lying Blood Pressure - Sitting Blood Pressure 74/50 L 70/54 L 77/41 L Blood Pressure Mean 58 59 53 Pulse Oximetry 99 Oxygen Delivery Method 03/01/19 14:16 03/01/19 14:21 03/01/19 14:26 Temperature Temperature Source Sepsis Recent Fever Within 48 Hours Sepsis Action Taken by Nursing Pulse Rate - Lying 76 Pulse Rate - Sitting 78 Pulse Rate 76 Respiratory Rate 20 18 Respiratory Effort / Characteristics Respiratory Depth Blood Pressure - Lying 77/41 L Blood Pressure - Sitting 85/51 L Blood Pressure 85/51 L 92/59 L Blood Pressure Mean 62 70 Pulse Oximetry 97 Oxygen Delivery Method Room Air Room Air 03/01/19 14:30 03/01/19 14:36 03/01/19 14:45 Temperature Temperature Source Sepsis Recent Fever Within 48 Hours Sepsis Action Taken by Nursing Pulse Rate - Lying Pulse Rate - Sitting Pulse Rate 70 70 77 Respiratory Rate 17 12 13 Respiratory Effort / Characteristics Respiratory Depth Blood Pressure - Lying Blood Pressure - Sitting Blood Pressure 80/59 L 89/59 L 93/56 L Blood Pressure Mean 66 69 68 Pulse Oximetry 97 95 Oxygen Delivery Method Room Air Room Air 03/01/19 15:00 03/01/19 15:23 03/01/19 15:30 Temperature Temperature Source Sepsis Recent Fever Within 48 Hours Sepsis Action Taken by Nursing Pulse Rate - Lying Pulse Rate - Sitting Pulse Rate 117 H 81 70 Respiratory Rate 15 19 15 Respiratory Effort / Characteristics Respiratory Depth Blood Pressure - Lying Blood Pressure - Sitting Blood Pressure 87/61 L 99/60 L 88/56 L Blood Pressure Mean 69 73 66 Pulse Oximetry 95 96 95 Oxygen Delivery Method Room Air Room Air Room Air 03/01/19 15:52 03/01/19 16:00 03/01/19 16:15 Temperature Temperature Source Sepsis Recent Fever Within 48 Hours Sepsis Action Taken by Nursing Pulse Rate - Lying Pulse Rate - Sitting Pulse Rate 71 73 70 Respiratory Rate 18 21 20 Respiratory Effort / Characteristics Respiratory Depth Blood Pressure - Lying Blood Pressure - Sitting Blood Pressure 83/51 L 81/57 L 82/50 L Blood Pressure Mean 61 65 60 Pulse Oximetry 94 94 95 Oxygen Delivery Method Room Air Room Air Room Air 03/01/19 16:30 Temperature Temperature Source Sepsis Recent Fever Within 48 Hours Sepsis Action Taken by Nursing Pulse Rate - Lying Pulse Rate - Sitting Pulse Rate 70 Respiratory Rate 18 Respiratory Effort / Characteristics Respiratory Depth Blood Pressure - Lying Blood Pressure - Sitting Blood Pressure 90/51 L Blood Pressure Mean 64 Pulse Oximetry 95 Oxygen Delivery Method Room Air Home Medications Current Medication List: was personally reviewed by me Laboratory Data Attestation: I reviewed the patient's lab results. Result diagrams: 03/01/19 14:14 03/01/19 14:14 Lab Results 03/01/19 03/01/19 03/01/19 Range/Units 14:14 14:14 14:14 WBC 8.10 (4.8-10.8) K/uL RBC 3.23 L (4.7-6.1) M/uL Hgb 10.7 L (14.0-18.0) g/dL Hct 32.4 L (42-52) % MCV 100.3 H (80-100) fL MCH 33.1 (25-34) pg MCHC 33.0 (32-36) g/dL RDW Std Deviation 52.7 H (36.4-46.3) fL RDW Coeff of Karine 14.3 (11.5-14.5) % Plt Count 177 (130-400) K/uL MPV 10.5 H (7.4-10.4) fL Immature Gran % (Auto) 1.4 % Neut % (Auto) 75.1 % Lymph % (Auto) 13.1 % Pendleton % (Auto) 9.1 % Eos % (Auto) 1.1 % Baso % (Auto) 0.2 % Immature Gran # (Auto) 0.11 H (0.00-0.02) K/uL Neut # (Auto) 6.08 (1.4-6.5) K/uL Lymph # (Auto) 1.06 L (1.2-3.4) K/uL [place]endleton # (Auto) 0.74 H (0.11-0.59) K/uL Eos # (Auto) 0.09 (0-0.5) K/uL Baso # (Auto) 0.02 (0-0.2) K/uL PT 10.4 (9.0-12.0) Seconds INR 1.0 (0.9-1.1) APTT 22.4 (21.0-31.0) Seconds PTT Ratio 0.8 Sodium 139 (136-145) mmol/L Potassium 3.5 (3.5-5.1) mmol/L Chloride 102 (98-107) mmol/L Carbon Dioxide 28 (21-32) mmol/L Anion Gap 10.0 (3-11) BUN 97 H (7-18) mg/dl Creatinine 4.44 H (0.6-1.4) mg/dl Est Cr Clr Drug Dosing Not Reportable Est GFR ( Amer) 13.3 Est GFR (Non-Af Amer) 11.5 BUN/Creatinine Ratio 21.9 H (10-20) Glucose 96 (70-99) mg/dl POC Lactic Acid Waqar (0.90-1.70) mmol/L Calcium 9.5 (8.5-10.1) mg/dl Total Bilirubin 0.6 (0.2-1) mg/dl AST 43 H (15-37) U/L ALT 45 (12-78) U/L Alkaline Phosphatase 58 (45-117) U/L Troponin I 0.025 (0-0.045) ng/ml NT-Pro-B Natriuret Pep 1386 (0-1800) pg/ml Total Protein 7.0 (6.4-8.2) gm/dl Albumin 3.8 (3.4-5.0) gm/dl Globulin 3.2 (2.5-4.0) gm/dl Albumin/Globulin Ratio 1.2 (0.9-2) 03/01/19 Range/Units 14:51 WBC (4.8-10.8) K/uL RBC (4.7-6.1) M/uL Hgb (14.0-18.0) g/dL Hct (42-52) % MCV (80-100) fL MCH (25-34) pg MCHC (32-36) g/dL RDW Std Deviation (36.4-46.3) fL RDW Coeff of Karine (11.5-14.5) % Plt Count (130-400) K/uL MPV (7.4-10.4) fL Immature Gran % (Auto) % Neut % (Auto) % Lymph % (Auto) % Pendleton % (Auto) % Eos % (Auto) % Baso % (Auto) % Immature Gran # (Auto) (0.00-0.02) K/uL Neut # (Auto) (1.4-6.5) K/uL Lymph # (Auto) (1.2-3.4) K/uL Pend[place] # (Auto) (0.11-0.59) K/uL Eos # (Auto) (0-0.5) K/uL Baso # (Auto) (0-0.2) K/uL PT (9.0-12.0) Seconds INR (0.9-1.1) APTT (21.0-31.0) Seconds PTT Ratio Sodium (136-145) mmol/L Potassium (3.5-5.1) mmol/L Chloride (98-107) mmol/L Carbon Dioxide (21-32) mmol/L Anion Gap (3-11) BUN (7-18) mg/dl Creatinine (0.6-1.4) mg/dl Est Cr Clr Drug Dosing Est GFR ( Amer) Est GFR (Non-Af Amer) BUN/Creatinine Ratio (10-20) Glucose (70-99) mg/dl POC Lactic Acid Waqar 1.12 (0.90-1.70) mmol/L Calcium (8.5-10.1) mg/dl Total Bilirubin (0.2-1) mg/dl AST (15-37) U/L ALT (12-78) U/L Alkaline Phosphatase (45-117) U/L Troponin I (0-0.045) ng/ml NT-Pro-B Natriuret Pep (0-1800) pg/ml Total Protein (6.4-8.2) gm/dl Albumin (3.4-5.0) gm/dl Globulin (2.5-4.0) gm/dl Albumin/Globulin Ratio (0.9-2) Administered Medications Ascorbic Acid (Vitamin C) 500 mg PO BID JOE Stop: 03/31/19 20:59 Last Admin: 03/01/19 20:39 Dose: 500 mg Documented by: [id number] Glucosamine Sulfate (Glucosamine Sulfate) 500 mg PO BID JOE Stop: 03/31/19 20:59 Last Admin: 03/01/19 20:40 Dose: 500 mg Documented by: [id number] Heparin Sodium (Porcine) (Heparin Sodium (Porcine)) 5,000 units SQ Q8 JOE Stop: 03/31/19 21:59 Last Admin: 03/01/19 20:41 Dose: 5,000 units Documented by: [id number] Cosigned by: [id number] Potassium Chloride/Sodium Chloride (Normal Saline W/20 Meq Kcl) 20 meq in 1,000 mls @ 50 mls/hr IV .Q20H JOE Stop: 03/31/19 18:59 Last Infusion: 03/01/19 20:21 Dose: 50 mls/hr Documented by: [id number] Infusion: 03/01/19 20:06 Dose: 0 mls/hr Documented by: [id number] Admin: 03/01/19 19:16 Dose: 50 mls/hr Documented by: [id number] Metoprolol Succinate (Toprol Xl) 50 mg PO BID JOE Stop: 03/31/19 20:59 Last Admin: 03/01/19 20:39 Dose: Not Given Documented by: [id number] Miscellaneous (Order Awaiting Action) 1 ea N/A Q12H JOE Stop: 03/31/19 19:59 Last Admin: 03/01/19 20:37 Dose: Not Given Documented by: [id number] Potassium Chloride (Klor-Con M20) 20 meq PO PM JOE Stop: 03/31/19 20:59 Last Admin: 03/01/19 20:39 Dose: 20 meq Documented by: [id number] Ranitidine HCl (Zantac) 75 mg PO HS JOE Stop: 03/31/19 20:59 Last Admin: 03/01/19 20:37 Dose: 75 mg Documented by: [id number] Simvastatin (Zocor) 40 mg PO HS JOE Stop: 03/31/19 20:59 Last Admin: 03/01/19 20:38 Dose: 40 mg Documented by: [id number] Discontinued Medications Sodium Chloride (Nss 1000ml) 1,000 mls @ 125 mls/hr IV .Q8H JOE Stop: 03/31/19 14:29 Last Infusion: 03/01/19 18:19 Dose: 0 mls/hr Documented by: [id number] Admin: 03/01/19 14:29 Dose: 125 mls/hr Documented by: [id number] Sodium Chloride (Nss 1000ml) 250 mls @ 999 mls/hr IV .Q16M ONE Stop: 03/01/19 14:35 Last Infusion: 03/01/19 14:25 Dose: 0 mls/hr Documented by: [id number] Admin: 03/01/19 14:13 Dose: 999 mls/hr Documented by: [id number] Sodium Chloride (Nss 1000ml) 250 mls @ 999 mls/hr IV .Q16M ONE Stop: 03/01/19 20:13 Last Infusion: 03/01/19 20:22 Dose: 0 mls/hr Documented by: [id number] Admin: 03/01/19 20:06 Dose: 999 mls/hr Documented by: [id number] Imaging Data Radiologist's Impression: Radiology results as stated below per my review and the radiologist's interpretation: XR chest 1V portable CLINICAL HISTORY: hypotension COMPARISON STUDY: 09/24/2017 FINDINGS: The heart is enlarged. There is retrocardiac opacity consistent with a hiatal hernia. There is a left subclavian pacer/defibrillator present. There is no failure. There is no focal pulmonary consolidation.[There are postsurgical changes of a midline sternotomy. IMPRESSION: 1. Cardiomegaly 2. Moderate hiatal hernia 3. No acute findings Electronically signed by: Kike Fonseca M.D. 03/01/2019 2:42 PM ECG Data Indication: weakness Rate (beats per minute): 71 Rhythm: other (paced) Findings: no PVC, no ST depression, no ST elevation and no acute ischemic change Blood Pressure Blood Pressure Findings: Low blood pressure Blood Pressure Disposition: further management by hospitalist Discharge Plan Visit Data *Final* Discharge Date/Time: 03/01/19 17:06 Chief Complaint: Dizziness Stated Complaint: VERY WEAK - DIZZY ED Provider: Daryl Hoang Discharge Problem: HTN (hypertension), Dizziness, Anemia, Acute renal failure Patient Disposition: Admitted As Inpatient Discharge Instructions Interventions: ED Discharge Assessment Last Done: 03/01/19 17:06 Discharge Problem: HTN (hypertension) Qualifiers: Hypertension type: unspecified Qualified Code(s): I10 - Essential (primary) hypertension Anemia Qualifiers: Anemia type: unspecified type Qualified Code(s): D64.9 - Anemia, unspecified Acute renal failure Qualifiers: Acute renal failure type: unspecified Qualified Code(s): N17.9 - Acute kidney failure, unspecified The scribe's documentation has been prepared under my direction and personally reviewed by me in its entirety. I confirm that the note above accurately reflects all work, treatment, procedures, and medical decision making performed by me.
[2019-03-02] MEDS: HEPARIN SOD 5,000 UNIT/0.5 ML VIAL SQ SCH ×4 (06:24→21:01)
[2019-03-02 07:11] LABS: BUN Creatinine Ratio 22.8 (10-20); Calcium 8.4 mg/dl (8.5-10.1); Creatinine Clr Calc Pharmacy 15.4 ml/min; Est GFR (Non-African American) 12.9; Potassium 3.5 mmol/L (3.5-5.1)
[2019-03-02] MEDS: CLOPIDOGREL BISULFATE 75 MG TAB PO SCH (08:14)
[2019-03-02] MEDS: OMEGA-3 (PURIFIED FISH OIL) 1 GM CAP PO SCH (08:14)
[2019-03-02] MEDS: GLUCOSAMINE SULFATE 500 MG CAP PO SCH ×2 (08:14→20:59)
[2019-03-02] MEDS: AMIODARONE 200 MG TAB PO SCH (08:14)
[2019-03-02] MEDS: CHOLECALCIFEROL 1,000 UNITS TAB PO SCH (08:15)
[2019-03-02] MEDS: MULTIVITAMIN TAB PO SCH (08:15)
[2019-03-02] MEDS: METOPROLOL SUCC 50MG EXT REL TAB PO SCH (08:15)
[2019-03-02] MEDS: ASCORBIC ACID 500 MG TAB PO SCH ×2 (08:15→20:59)
[2019-03-02] MEDS ORDERED: NON-FORMULARY MEDICATION (Coenzyme Q10 [Coq-10] 100 MG) PO SCH (09:00)
--- NOTE | 2019-03-02 09:30 | Ultrasound Report ---
US renal/blad retro comp HISTORY: Renal insufficiency renal failure COMPARISON: None. FINDINGS: Right kidney: Maximum dimension 10.9 cm. No evidence for hydronephrosis. Normal corticomedullary diff erentiation and cortical thickness. Left kidney: Maximum dimension 10.6 cm. No evidence for hydronephrosis. 3 cm upper pole cyst. Normal corticomedullary differentiation and cortical thickness. Bladder: Mild bladder wall thickening IMPRESSION: 1. No evidence for hydronephrosis. 2. 3 cm left renal cyst. 3. Moderate bladder wall thickening. The above report was generated using voice recognition software. It may contain grammatical, syntax or spelling errors. Electronically signed by: Eduardo Rosales M.D. 03/02/2019 9:29 AM
[2019-03-02] MEDS: SODIUM CHLORIDE 0.9% 1000ML 1,000 ML IV SCH ×2 (11:25→18:41)
[2019-03-02] MEDS ORDERED: ISOSORBIDE MONO EXTENDED REL 30 MG TABCR PO SCH (11:30)
[2019-03-02] MEDS ORDERED: SODIUM CHLORIDE 0.9% 500 ML IV ONE (11:51)
[2019-03-02] MEDS ORDERED: SODIUM CHLORIDE 0.9% 1000ML 500 ML IV ONE ×2 (11:53→13:07)
--- NOTE | 2019-03-02 12:15 | Nephrology Consultation ---
Date of Consultation March 02, 2019 Assessment & Plan (1) Acute on chronic renal insufficiency: -- JOSE ENRIQUE likely related to intravascular volume contraction. Will check FeNa -- Patient is clinically volume contracted. Abdominal & LE swelling have resolved. Hold diuretics. Continue gentle hydration w/ 0.9NS -- Electrolyte balance is acceptable. No acute indication for HD at this time -- Urinalysis is negative for protein or blood. Urine sediment is benign. No cellular casts reported -- Renal US report reviewed: No hydronephrosis -- Monitor I&O's, bp and serial PRP (2) Anemia: -- Mild asymptomatic anemia. Will monitor. No acute indication for ALECIA (3) Ischemic cardiomyopathy: -- Patient reports "dry weight" at home of 184 lbs. He notes that his scale reads 10 lbs lower than hospital scales. His admission weight was 198 lbs and he appears dehydrated. Patient will likely need to adjust his EDW at the time of discharge and should purchase an accurate home scale -- Await Cardiology input History of Present Illness Reason for Consultation: JOSE ENRIQUE on CKD Attending Physician: Ashley Flower MD History of Present Illness Mr. Lackey is an 83 year old white male who is seen at the request of Dr. Flower for evaluation of JOSE ENRIQUE/CKD. Medical records in the EMR were reviewed today and are summarized as follows: Mr. Lackey has stage III CKD (moderate impairment). His baseline creatinine has been 1.3-1.5 w/ EGFR 50 cc/min. His medical history is also significant for kidney stones, BPH, HTN, COPD, hypercholesterolemia and ICM. He has ASCVD and has undergone CABG x 1988. Echocardiogram 08/29 revealed LVEF 25%. He has an AICD in place and is seen [place] [facility]. He reports a history of chronic abdominal and LE swelling. Over the last week Mr. Lackey's weight had increased and his edema was worse. Metolazone 5 mg daily was added to his regular diuretic regimen of Furosemide 40 mg each morning. Mr. Lackey reports a brisk diuresis with improvement of his symptoms but he subsequently became weak and lightheaded. He presented to the ED where SBP was in the mid 70's and creatinine had risen to 4.4. Mr. Lackey has been admitted to telemetry bed. Diuretics have been held and gentle hydration provided. Allergies Allergy/AdvReac Type Severity Reaction Status Date / Time levofloxacin [[facility] AdvReac Severe dizzy/upset Unverified 03/01/19 14:35 stomach fluticasone AdvReac Intermediate DIZZY Unverified 03/01/19 14:35 milk AdvReac Intermediate DIZZY Unverified 03/01/19 14:35 salmeterol AdvReac Intermediate DIZZY Unverified 03/01/19 14:35 Home Medications Home Medications Medication Instructions Recorded Confirmed Type Vitamin C 100 mg PO BID 05/30/18 03/01/19 History cholecalciferol (vitamin D3) 1,000 unit PO QAM 05/30/18 03/01/19 History [Vitamin D3] coenzyme Q10 [CoQ-10] 100 mg PO QAM 05/30/18 03/01/19 History glucosamine-chondroitin 1 tab PO BID 05/30/18 03/01/19 History lecithin 1,200 mg PO BID 05/30/18 03/01/19 History nitroglycerin [Nitrostat] 0.4 mg SUBLINGUAL DIRECTED PRN 05/30/18 03/01/19 History omega [id number] oil [Fish Oil] 1,200 mg PO QAM 05/30/18 03/01/19 History ranitidine HCl 75 mg PO HS 05/30/18 03/01/19 History albuterol sulfate HFA 90 1 puff INHALATION DAILY PRN 06/20/18 03/01/19 History mcg/actuation aerosol inhaler metolazone 5 mg tablet 5 mg PO DAILY PRN 06/20/18 03/01/19 History aspirin 81 mg tablet,delayed 81 mg PO [id number] tab 08/14/18 03/01/19 History release amiodarone 200 mg tablet 200 mg PO QAM #90 tab 02/15/19 03/01/19 Rx clopidogrel 75 mg tablet 75 mg PO QAM #90 tab 02/15/19 03/01/19 Rx furosemide 40 mg tablet 40 mg PO QAM #90 tab 02/15/19 03/01/19 Rx metoprolol succinate ER 100 mg 50 mg PO BID #180 tab 02/15/19 03/01/19 Rx tablet,extended release 24 hr mometasone-formoterol HFA 200 2 puff INHALATION Q12H #13 gm 02/15/19 03/01/19 Rx mcg-5 mcg/actuation aerosol inhaler simvastatin 40 mg tablet 40 mg PO HS #90 tab 02/15/19 03/01/19 Rx levofloxacin 750 mg tablet 750 mg PO Q48H 10 Days #10 tab 02/21/19 03/01/19 Rx isosorbide mononitrate 30 mg PO QDL 03/01/19 03/01/19 History multivitamin 1 tab PO QAM 03/01/19 03/01/19 History potassium chloride [Klor-Con M20] 20 meq PO PM 03/01/19 03/01/19 History Patient History Medical History Traumatic open wound of left lower leg with delayed healing (Acute) SIRS (systemic inflammatory response syndrome) (Acute 02/22/14) Ischemic cardiomyopathy Non-ST elevated myocardial infarction HTN (hypertension) Left kidney mass Ureterolithiasis (Acute) GERD (gastroesophageal reflux disease) HLD (hyperlipidemia) CAD (coronary artery disease) (Chronic) COPD (chronic obstructive pulmonary disease) (Chronic) Asthma (Chronic) CHF (congestive heart failure) Duodenal ulcer GERD (gastroesophageal reflux disease) Hyperlipidemia Hypertension Surgical History Hx of CABG (Resolved) S/P placement of cardiac pacemaker (Chronic) S/P CABG (coronary artery bypass graft) S/P total hip arthroplasty Family History Other FHx: heart disease Family history of high blood pressure Social History Preferred Language: Croatian Communication Ability: Effective Visual Impairment: No Limitations Beliefs That Will Affect Care: Druze Druze Beliefs: Jehovah Witness, no blood transfusions marital status: Current Living Situation: Spouse current occupational status: retired Feels Safe at Home: Yes Smoking Status: Never smoker Second Hand Exposure: No Hx Alcohol Use: No Hx Substance Use: No Review of Systems Constitutional: + weakness; no fever and no chills Eyes: no worsening vision and no problem reported Ear, Nose, Mouth, Throat: dry mouth Respiratory: no cough and no dyspnea Cardiovascular: no chest pain, no palpitations and no edema Gastrointestinal: no abdominal pain, no nausea, no vomiting and no chandu rrhea/loose stools Genitourinary: no dysuria, no urinary hesitancy and no hematuria Musculoskeletal: no back pain Integumentary: no rash Neurologic: + dizziness; no falls and no confusion Physical Exam Constitutional: + frail appearing; no acute distress and + not appropriately hydrated Eyes: PERRL, conjunctivae normal, anicteric sclerae ENMT: Nose: no external nose abnormality Mouth: + dry oral mucous membranes; no lip abnormality Neck: trachea midline, no thyromegaly Respiratory: normal respiratory effort, lungs clear to auscultation Cardiovascular: RRR, no murmur, no edema Gastrointestinal (Abdomen): normal bowel sounds, soft, nontender, no hepatosplenomegaly Musculoskeletal: no cyanosis or clubbing, extremities motor strength 5/5 Skin: no rashes, warm and dry + abnormal turgor Neurologic: awake; not confused Results & Data Vital Signs (Past 12 Hours) Vital Signs Temp Pulse Pulse Pulse Resp BP BP 03/02/19 11:47 82/42 L 03/02/19 11:12 36.3 C L 70 18 77/47 L 03/02/19 08:13 72 90/50 L 03/02/19 08:00 71 03/02/19 07:05 36.6 C 70 18 86/48 L 03/02/19 03:50 36.5 C 70 16 92/58 L Pulse Ox 03/02/19 11:47 03/02/19 11:12 92 03/02/19 08:13 03/02/19 08:00 03/02/19 07:05 97 03/02/19 03:50 95 Laboratory Results Laboratory Tests 03/01/19 03/01/19 03/02/19 14:14 17:55 06:18 WBC 8.10 Hgb 10.7 L Hct 32.4 L Plt Count 177 Sodium 140 Potassium 3.5 Chloride 106 Carbon Dioxide 25 BUN 92 H Creatinine 4.04 H D Glucose 84 Urine Color Yellow Urine Appearance Cloudy A Urine pH 5.0 Ur Specific [place] 1.018 Urine Protein Negative Urine Glucose (UA) Negative Urine Ketones Negative Urine Blood Negative Urine Nitrite Negative Urine Bilirubin Negative Urine Urobilinogen Negative Ur Leukocyte Esterase Negative Urine WBC (Auto) 1-5 Urine RBC (Auto) 0-4 U Hyaline Cast (Auto) 5-10 H U Epithel Cells (Auto) 10-20 H Urine Bacteria (Auto) Negative Diagnostic Findings Renal US 03/02/19: Right kidney: Maximum dimension 10.9 cm. No evidence for hydronephrosis. Normal corticomedullary differentiation and cortical thickness. Left kidney: Maximum dimension 10.6 cm. No evidence for hydronephrosis. 3 cm upper pole cyst. Normal corticomedullary differentiation and cortical thickness. Bladder: Mild bladder wall thickening
--- NOTE | 2019-03-02 13:26 | Hospitalist Progress Note ---
Date of Service March 02, 2019 Assessment & Plan (1) Acute renal failure: Seems likely related to increased lasix/metolazone recently and resultant dehydration Creatinine was 4.44 on admission, baseline is 1.3 and was steadily trending up over the past 2 to 3 weeks along with escalation of diuretics as an outpatient--> Baseline cr 2/ was 1.3 -> 2.4 on 02/14 -> 3.2 on 02/24 Was given 250cc bolus + IVF in the ED along with gentle IV fluids through the night Blood pressures remain very low in the 70s to 80s systolic-2x 500 mL boluses of normal saline were given today and creatinine is improving, down to 3.56 There are no casts on urinalysis suggestive of ATN Renal ultrasound without hydronephrosis Is nonoliguric, electrolytes otherwise acceptable, volume status is acceptable -Continue maintenance fluids but take out potassium due to acute kidney injury and risk of hyperkalemia-change to normal saline at 125 mL's per hour -Continue to hold home diuretics -Appreciate nephro c/s (2) Lightheaded: Seems likely related to volume depletion/dehydration due to above Improved now somewhat but did drop to 60 systolic with standing as per nursing- orthostatic PT/OT-would defer for now until orthostasis improves -Check orthostatics in the morning (3) Hypotension: Due to severe dehydration as above -Holding diuretics and home antihypertensives -Give normal saline bolus as needed and continue maintenance fluids -Follow blood pressures closely Lactate however is normal on repeat again today at 1.1 suggestive that he is not causing any significant ischemia with his low blood pressures He is mentating completely normally Patient is agreeable to pressors if needed (4) Hypokalemia: Has been on K+ recently due to increased dose of diuretics as an outpatie nt Potassium today is 3.5 Will continue potassium chloride 20 mEq p.o. every afternoon cautiously in the setting of JOSE ENRIQUE Monitor BMP (5) CHF (congestive heart failure): Chronic systolic CHF Last ECHO 12/2017 in [employer] EF 25% Holding diuretics for now, will need new plan for resuming once renal function returns normal Currently seems dehydrated, home weight scale is 10 pounds less than scale here -Follow daily weights, strict I's and O's (6) HTN (hypertension): Profoundly hypotensive -Hold home metoprolol and isosorbide as well as diuretics (7) Traumatic wound: Follows with [facility] Finished almost a full course of levaquin for cellulitis proph-none further needed (8) GERD (gastroesophageal reflux disease): continue home ranitidine (9) HLD (hyperlipidemia): continue statin (10) COPD (chronic obstructive pulmonary disease): No acute exacerbation -Continue home meds HS O2 use (11) CAD (coronary artery disease): Status post CABG Continue home meds of aspirin 81mg, plavix, statin -Holding beta-heriberto -Holding isosorbide for low blood pressure (12) S/P placement of cardiac pacemaker: For severe ischemic cardiomyopathy and history of V. tach -Continue amiodarone -Holding beta-heriberto as above for hypotension-watch for recurrent V. tach (13) Anemia: Hemoglobin mildly low at 10.7 and is macrocytic -Check B12, folate in the morning (14) DVT prophylaxis: SCDs, Heparin for DVT proph Dispo-remain on PCU overnight Subjective Patient feels tired today but denies lightheadedness, denies chest pain or shortness of breath. Denies abdominal pain. His blood pressure has been very low since admission and through the night. Telemetry with paced rhythm in the 70s I discussed the case with Nephrology Review of Systems Review of Systems: All systems reviewed & are unremarkable except as noted in HPI & below Physical Exam Constitutional: WD/WN, vitals as above Eyes: PERRL, conjunctivae normal, anicteric sclerae ENMT: Nose: no external nose abnormality Mouth: + oral mucosal abnormality (Mucous membranes appear dry) Neck: trachea midline, no thyromegaly Respiratory: normal respiratory effort, lungs clear to auscultation Cardiovascular: Rate/Rhythm: regular rate and regular rhythm Heart Sounds: no murmur Extremities: + edema (Trace pitting edema of the ankles and feet bilaterally) Gastrointestinal (Abdomen): normal bowel sounds, soft, nontender, no hepatosplenomegaly Musculoskeletal: Extremities: extremities normal to inspection; no cyanosis and no clubbing Skin: no rashes, warm and dry Neurologic: moves all extremities and awake; no focal motor deficits Psychiatric: A+Ox3, euthymic affect Results & Data Vital Signs (Past 12 Hours) Vital Signs Temp Pulse Pulse Pulse Resp BP BP 03/02/19 13:06 86/58 L 03/02/19 12:06 03/02/19 11:47 82/42 L 03/02/19 11:12 36.3 C L 70 18 77/47 L 03/02/19 08:13 72 90/50 L 03/02/19 08:00 71 03/02/19 07:05 36.6 C 70 18 86/48 L 03/02/19 03:50 36.5 C 70 16 92/58 L Pulse Ox 03/02/19 13:06 03/02/19 12:06 95 03/02/19 11:47 03/02/19 11:12 92 03/02/19 08:13 03/02/19 08:00 03/02/19 07:05 97 03/02/19 03:50 95 Laboratory Results 03/02/19 03/02/19 03/02/19 Range/Units 16:58 16:58 06:18 Sodium 142 140 (136-145) mmol/L Potassium 3.4 L 3.5 (3.5-5.1) mmol/L Chloride 106 106 (98-107) mmol/L Carbon Dioxide 23 25 (21-32) mmol/L Anion Gap 13.0 H 9.0 (3-11) BUN 86 H 92 H (7-18) mg/dl Creatinine 3.56 H D 4.04 H D (0.6-1.4) mg/dl Est Cr Clr Drug Dosing 17.4 15.4 ml/min Est GFR ( Amer) 17.4 15.0 Est GFR (Non-Af Amer) 15.0 12.9 BUN/Creatinine Ratio 24.2 H 22.8 H (10-20) Glucose 102 H 84 (70-99) mg/dl Lactate 1.1 (0.4-2.0) mmol/L Calcium 8.0 L 8.4 L (8.5-10.1) mg/dl Troponin I (0-0.045) ng/ml 03/01/19 03/01/19 Range/Units 23:33 17:59 Sodium (136-145) mmol/L Potassium (3.5-5.1) mmol/L Chloride (98-107) mmol/L Carbon Dioxide (21-32) mmol/L Anion Gap (3-11) BUN (7-18) mg/dl Creatinine (0.6-1.4) mg/dl Est Cr Clr Drug Dosing ml/min Est GFR ( Amer) Est GFR (Non-Af Amer) BUN/Creatinine Ratio (10-20) Glucose (70-99) mg/dl Lactate (0.4-2.0) mmol/L Calcium (8.5-10.1) mg/dl Troponin I 0.039 0.025 (0-0.045) ng/ml Diagnostic Findings Renal ultrasound without hydronephrosis PG Care Time/CCT Total # of Minutes Spent Total Time Spent with Patient: Total time spent is greater than 50% in coordination of care (as documented) at patient's floor/unit and/or counseling patient: (1) Acute renal failure Acute renal failure type: unspecified Qualified Code(s): N17.9 - Acute kidney failure, unspecified (2) HTN (hypertension) Hypertension type: unspecified Qualified Code(s): I10 - Essential (primary) hypertension
[2019-03-02] MEDS ORDERED: SODIUM CHLORIDE 0.9% 250 ML IV ONE (16:47)
[2019-03-02 17:25] LABS: BUN Creatinine Ratio 24.2 (10-20); Creatinine Clr Calc Pharmacy 17.4 ml/min; Est GFR (African American) 17.4; Potassium 3.4 mmol/L (3.5-5.1)
[2019-03-02 19:08] LABS: Creatinine Urine Random 81.2 mg/dl
[2019-03-02] MEDS: MOMETASONE/FORMOTEROL 200MCG/5MCG INH SCH (20:57)
[2019-03-02] MEDS: POTASSIUM CHLORIDE 20 MEQ TABCR PO SCH (20:58)
[2019-03-02] MEDS: SIMVASTATIN 40 MG TAB PO SCH (21:00)
[2019-03-03] MEDS: SODIUM CHLORIDE 0.9% 1000ML 1,000 ML IV SCH ×2 (02:26→11:42)
[2019-03-03] MEDS: HEPARIN SOD 5,000 UNIT/0.5 ML VIAL SQ SCH ×3 (06:03→21:23)
[2019-03-03 07:24] LABS: Hematocrit (blood only) 26.1 % (42-52); Hemoglobin 8.7 g/dL (14.0-18.0); Mean Corpuscular Hgb Conc 33.3 g/dL (32-36); Mean Corpuscular Volume 98.9 fL (80-100); Mean Platelet Volume 10.5 fL (7.4-10.4); Platelet Count 133 K/uL (130-400); RDW Coefficient of Variation 14.5 % (11.5-14.5); RDW Standard Deviation 51.6 fL (36.4-46.3); Red Blood Count 2.64 M/uL (4.7-6.1)
[2019-03-03 07:50] LABS: BUN Creatinine Ratio 25.5 (10-20); Creatinine Clr Calc Pharmacy 21.3 ml/min; Est GFR (African American) 21.9; Est GFR (Non-African American) 18.9; Potassium 3.3 mmol/L (3.5-5.1)
[2019-03-03 07:54] LABS: Basophils # (auto) 0.02 K/uL (0-0.2); Basophils % (auto) 0.3 %; Eosinophils # (auto) 0.13 K/uL (0-0.5); Eosinophils % (auto) 2.1 %; Immature Granulocytes # (auto) 0.07 K/uL (0.00-0.02); Immature Granulocytes % (auto) 1.1 %; Lymphocytes # (auto) 0.94 K/uL (1.2-3.4); Lymphocytes % (auto) 15.4 %; Monocytes # (auto) 0.53 K/uL (0.11-0.59); Monocytes % (auto) 8.7 %; Neutrophils # (auto) 4.41 K/uL (1.4-6.5); Neutrophils % (auto) 72.4 %
[2019-03-03 08:32] LABS: Folate (Folic Acid) > 24.00 ng/ml (>5.38); Vitamin B12 504 pg/ml (211-911)
[2019-03-03] MEDS: OMEGA-3 (PURIFIED FISH OIL) 1 GM CAP PO SCH (09:06)
[2019-03-03] MEDS: MULTIVITAMIN TAB PO SCH (09:07)
[2019-03-03] MEDS: MOMETASONE/FORMOTEROL 200MCG/5MCG INH SCH ×2 (09:07→21:23)
[2019-03-03] MEDS: ASPIRIN 81 MG ECTAB PO SCH (09:07)
[2019-03-03] MEDS: AMIODARONE 200 MG TAB PO SCH (09:08)
[2019-03-03] MEDS: ASCORBIC ACID 500 MG TAB PO SCH ×2 (09:08→21:22)
[2019-03-03] MEDS: CHOLECALCIFEROL 1,000 UNITS TAB PO SCH (09:09)
[2019-03-03] MEDS: CLOPIDOGREL BISULFATE 75 MG TAB PO SCH (09:10)
[2019-03-03 09:40] LABS: Ferritin 195.6 ng/ml (8-388)
[2019-03-03] MEDS: GLUCOSAMINE SULFATE 500 MG CAP PO SCH ×2 (10:22→21:22)
--- NOTE | 2019-03-03 10:34 | Nephrology Progress Note ---
Date of Service March 03, 2019 Assessment & Plan (1) Acute on chronic renal insufficiency: 83 y o M with JOSE ENRIQUE in the setting of volume depletion with aggressive diuresis. Has been on IV fluid since admission. Renal function started to improve, creatinine down to 3.0, has been having decent urine output without diuretics. Volume status seems stable -- decrease IV fluid to 75 mL/hour and monitor volume status closely if p.o. intake remained adequate discontinue IV fluid in the afternoon -- replace potassium with 40 mEq KCL x1 dose --check random cortisol, iron study -- Monitor I&O's, bp and serial PRP Will follow (2) Anemia: -- Mild asymptomatic anemia. Will monitor. No acute indication for ALECIA (3) Ischemic cardiomyopathy: -- Patient reports "dry weight" at home of 184 lbs. He notes that his scale reads 10 lbs lower than hospital scales. His admission weight was 198 lbs and he appears dehydrated. Patient will likely need to adjust his EDW at the time of discharge and should purchase an accurate home scale -- Await Cardiology input Subjective ED was seen and examined with his son Blake at bedside. Has been feeling better, denies any further shortness of breath or chest pain. Urine output has improve significantly. Creatinine slightly improved to 3.0, potassium remained low at 3.3. Has been on IV fluid at 125 mL/hour, blood pressure remained low. Discussion with other providers reported that his blood pressure always runs low systolic usually runs around 80 to 90s with severe cardiomyopathy. Review of Systems Review of Systems: All systems reviewed & are unremarkable except as noted in HPI & below Physical Exam Constitutional: WD/WN, vitals as above + ill appearing Respiratory: normal respiratory effort, lungs clear to auscultation Cardiovascular: RRR, no murmur, no edema Neurologic: moves all extremities and awake Psychiatric: A+Ox3, euthymic affect Results & Data Vital Signs (Past 12 Hours) Vital Signs Temp Pulse Pulse Resp BP BP Pulse Ox 03/03/19 07:25 36.6 C 71 20 77/51 L 92 03/03/19 04:16 37.0 C 78 15 95/51 L 93 03/03/19 00:17 36.7 C 68 17 85/52 L 93 03/02/19 23:09 70
--- NOTE | 2019-03-03 12:22 | Hospitalist Progress Note ---
Date of Service March 03, 2019 Assessment & Plan (1) Acute renal failure: Due to prerenal vs. ATN from increased Lasix/metolazone. Renal ultrasound without hydronephrosis. - Creatinine was 4.44 on admission, baseline is 1.3 and was steadily trending up over the past 2 to 3 weeks along with escalation of diuretics as an outpatient--> Baseline cr 2/ was 1.3 -> 2.4 on 02/14 -> 3.2 on 02/24 - Given IV fluids; finished IVFs on 03/03 in conjunction with nephro and cardio. - Will monitor Cr - Continue to hold home diuretics (2) Lightheaded: Seems likely related to volume depletion/dehydration due to above. - Still with significant hypotension. - PT/OT (3) Hypotension: Longstanding per cardiology. [place] to be related to his known cardiomyopathy. - Will *not* give additional IV fluids to avoid hypervolemia. - Adjust meds as able (4) CHF (congestive heart failure): Chronic systolic CHF. Last echo in 12/2017 in [facility] showed EF 25%. - Holding diuretics for now, will need new plan for resuming once renal function returns normal - Follow daily weights, strict I's and O's (5) HTN (hypertension): Profoundly hypotensive. - Holding home metoprolol and isosorbide as well as diuretics (as above) (6) Traumatic wound: Follows with [facility]. Finished almost a full course of levaquin for cellulitis proph - none further needed. (7) GERD (gastroesophageal reflux disease): Continue home ranitidine (8) HLD (hyperlipidemia): Continue statin (9) COPD (chronic obstructive pulmonary disease): No acute exacerbation. - Continue home meds - HS O2 use (10) CAD (coronary artery disease): Status post CABG. - Continue home meds of aspirin 81mg, plavix, statin - Holding beta-heriberto - Holding isosorbide for low blood pressure (11) S/P placement of cardiac pacemaker: For severe ischemic cardiomyopathy and history of V. tach. - Continue amiodarone - Holding beta-heriberto as above for hypotension-watch for recurrent V. tach (12) Anemia: Hemoglobin mildly low at 10.7 and is macrocytic. - B12 & folate were checked on 03/03 and were normal (13) DVT prophylaxis: SCDs, Heparin for DVT proph Subjective Feeling pretty well. No shortness of breath. No major concerns. Does not have any swelling. Review of Systems Review of Systems: All systems reviewed & are unremarkable except as noted in HPI & below Physical Exam Constitutional: WD/WN, vitals as above Eyes: EOM intact bilaterally; no conjunctival abnormality ENMT: external ear and nose normal, oropharynx normal Neck: trachea midline, no thyromegaly normal visual inspection Respiratory: normal respiratory effort, lungs clear to auscultation no respiratory distress Cardiovascular: RRR, no murmur, no edema Gastrointestinal (Abdomen): Inspection/Auscultation: abdomen normal to inspection; abdomen not distended Musculoskeletal: no cyanosis or clubbing, extremities motor strength 5/5 Skin: no rashes, warm and dry Neurologic: moves all extremities and awake Psychiatric: Orientation: alert, oriented to person and cooperative Results & Data Vital Signs (Past 12 Hours) Vital Signs Temp Pulse Pulse Resp BP BP Pulse Ox 03/03/19 11:53 37 C 70 20 103/52 L 93 03/03/19 07:25 36.6 C 71 20 77/51 L 92 03/03/19 04:16 37.0 C 78 15 95/51 L 93 03/03/19 00:17 36.7 C 68 17 85/52 L 93 PG Care Time/CCT Total # of Minutes Spent Total Time Spent with Patient: Total time spent is greater than 50% in coordination of care (as documented) at patient's floor/unit and/or counseling patient: (1) Acute renal failure Acute renal failure type: unspecified Qualified Code(s): N17.9 - Acute kidney failure, unspecified (2) HTN (hypertension) Hypertension type: unspecified Qualified Code(s): I10 - Essential (primary) hypertension
[2019-03-03] MEDS: SIMVASTATIN 40 MG TAB PO SCH (21:22)
[2019-03-03] MEDS: POTASSIUM CHLORIDE 20 MEQ TABCR PO SCH (21:22)
[2019-03-04] MEDS: HEPARIN SOD 5,000 UNIT/0.5 ML VIAL SQ SCH ×3 (06:49→21:24)
[2019-03-04] MEDS: MOMETASONE/FORMOTEROL 200MCG/5MCG INH SCH ×2 (07:49→20:13)
[2019-03-04] MEDS: AMIODARONE 200 MG TAB PO SCH (07:49)
[2019-03-04] MEDS: MULTIVITAMIN TAB PO SCH (07:50)
[2019-03-04] MEDS: GLUCOSAMINE SULFATE 500 MG CAP PO SCH ×2 (07:50→20:13)
[2019-03-04] MEDS: OMEGA-3 (PURIFIED FISH OIL) 1 GM CAP PO SCH (07:50)
[2019-03-04] MEDS: CHOLECALCIFEROL 1,000 UNITS TAB PO SCH (07:50)
[2019-03-04] MEDS: ASCORBIC ACID 500 MG TAB PO SCH ×2 (07:50→20:15)
[2019-03-04] MEDS: CLOPIDOGREL BISULFATE 75 MG TAB PO SCH (07:50)
[2019-03-04 08:13] LABS: Hematocrit (blood only) 29.3 % (42-52); Hemoglobin 9.5 g/dL (14.0-18.0); Mean Corpuscular Hgb Conc 32.4 g/dL (32-36); Mean Corpuscular Volume 100.7 fL (80-100); Mean Platelet Volume 10.4 fL (7.4-10.4); Platelet Count 138 K/uL (130-400); RDW Coefficient of Variation 14.6 % (11.5-14.5); RDW Standard Deviation 53.2 fL (36.4-46.3); Red Blood Count 2.91 M/uL (4.7-6.1); White Blood Count 8.51 K/uL (4.8-10.8)
[2019-03-04 08:59] LABS: BUN Creatinine Ratio 23.9 (10-20); Calcium 8.7 mg/dl (8.5-10.1); Est GFR (African American) 29.1; Est GFR (Non-African American) 25.1; Potassium 3.5 mmol/L (3.5-5.1)
--- NOTE | 2019-03-04 10:28 | Nephrology Progress Note ---
Date of Service March 04, 2019 Assessment & Plan (1) Acute on chronic renal insufficiency: 83 y o M with JOSE ENRIQUE in the setting of volume depletion with aggressive diuresis. Has been on IV fluid since admission. Renal function started to improve, creatinine down to 3.0, has been having decent urine output without diuretics. Volume status seems stable. Has been off of IV fluid, renal function continues to improve, electrolyte acceptable. Overall feeling better. Hemoglobin low but stable, has adequate iron store. --continue to monitor for renal recovery with hemodynamics support, avoid further IV fluid, continue to hold diuretics for now. Would suggest restarting on diuretics at a lower dose prior to discharge and have close follow-up with [facility] --recommend intensive physical therapy -- Monitor I&O's, bp and serial PRP Will follow (2) Anemia: -- Mild asymptomatic anemia. Will monitor. No acute indication for ALECIA (3) Ischemic cardiomyopathy: -- Patient reports "dry weight" at home of 184 lbs. He notes that his scale reads 10 lbs lower than hospital scales. His admission weight was 198 lbs and he appears dehydrated. Patient will likely need to adjust his EDW at the time of discharge and should purchase an accurate home scale -- Await Cardiology input Subjective ED was seen and examined with his son and Courtney at bedside. Has been feeling better, denies any further shortness of breath or chest pain. Urine output has improve significantly. Renal function continues to improve slowly, creatinine down to 2.3, electrolyte acceptable. Has been off of IV fluid , blood pressure remained low. Review of Systems Review of Systems: All systems reviewed & are unremarkable except as noted in HPI & below Physical Exam Constitutional: WD/WN, vitals as above + ill appearing Respiratory: normal respiratory effort, lungs clear to auscultation Cardiovascular: RRR, no murmur, no edema Neurologic: moves all extremities and awake Psychiatric: A+Ox3, euthymic affect Results & Data Vital Signs (Past 12 Hours) Vital Signs Temp Pulse Pulse Resp BP Pulse Ox 03/04/19 08:10 73 03/04/19 07:31 36.6 C 18 98 03/04/19 04:02 36.5 C 71 15 87/51 L 99 03/04/19 00:04 36.7 C 78 18 92/44 L 96
--- NOTE | 2019-03-04 12:42 | Hospitalist Progress Note ---
Date of Service March 04, 2019 Assessment & Plan (1) Acute renal failure: Due to prerenal vs. ATN from increased Lasix/metolazone. Renal ultrasound without hydronephrosis. - Creatinine was 4.44 on admission, baseline is 1.3 and was steadily trending up over the past 2 to 3 weeks along with escalation of diuretics as an outpatient--> Baseline Cr. on 09/13 was 1.3 -> 2.4 on 02/14 -> 3.2 on 02/24 - Given IV fluids; finished IVFs on 03/03 in conjunction with nephro and cardio. - Will monitor Cr - Continue to hold home diuretics - Likely restart tomorrow if Cr continues to improve. (2) Lightheaded: Seems likely related to volume depletion/dehydration due to above. - Resolved as of 03/04 with patient working PT/OT. (3) Hypotension: Longstanding per cardiology. [place] to be related to his known cardiomyopat hy. - Will *not* give additional IV fluids to avoid hypervolemia. - Adjust meds as able - On 03/04, he was not orthostatic with OT. (4) CHF (congestive heart failure): Chronic systolic CHF. Last echo in 12/2017 in [facility] showed EF 25%. - Holding diuretics for now, will need new plan for resuming once renal function returns normal - Follow daily weights, strict I's and O's (5) HTN (hypertension): Profoundly hypotensive. - Holding home metoprolol and isosorbide as well as diuretics (as above) (6) Traumatic wound: Follows with [facility]. Finished almost a full course of levaquin for cellulitis proph - none further needed. (7) GERD (gastroesophageal reflux disease): Continue home ranitidine (8) HLD (hyperlipidemia): Continue statin (9) COPD (chronic obstructive pulmonary disease): No acute exacerbation. - Continue home meds - HS O2 use (10) CAD (coronary artery disease): Status post CABG. - Continue home meds of aspirin 81mg, plavix, statin - Holding beta-heriberto - Holding isosorbide for low blood pressure (11) S/P placement of cardiac pacemaker: For severe ischemic cardiomyopathy and history of V. tach. - Continue amiodarone - Holding beta-heriberto as above for hypotension - watch for recurrent V. tach (12) Anemia: Hemoglobin mildly low at 10.7 and is macrocytic. - B12 & folate were checked on 03/03 and were normal (13) DVT prophylaxis: SCDs, Heparin for DVT proph Subjective Feeling well. No major complaints. No lightheadedness or dizziness. Review of Systems Review of Systems: All systems reviewed & are unremarkable except as noted in HPI & below Physical Exam Constitutional: WD/WN, vitals as above Eyes: EOM intact bilaterally; no conjunctival abnormality ENMT: external ear and nose normal, oropharynx normal Neck: trachea midline, no thyromegaly normal visual inspection Respiratory: normal respiratory effort, lungs clear to auscultation no respiratory distress Cardiovascular: RRR, no murmur, no edema Gastrointestinal (Abdomen): Inspection/Auscultation: abdomen normal to inspection; abdomen not distended Musculoskeletal: no cyanosis or clubbing, extremities motor strength 5/5 Skin: no rashes, warm and dry Neurologic: moves all extremities and awake Psychiatric: Orientation: alert, oriented to person and cooperative Results & Data Vital Signs (Past 12 Hours) Vital Signs Temp Pulse Pulse Resp BP Pulse Ox Pulse Ox 03/04/19 11:33 92 03/04/19 10:43 36.7 C 74 20 94/54 L 91 03/04/19 08:10 73 03/04/19 07:31 36.6 C 18 98 03/04/19 04:02 36.5 C 71 15 87/51 L 99 Pulse Ox 03/04/19 11:33 90 03/04/19 10:43 03/04/19 08:10 03/04/19 07:31 03/04/19 04:02 PG Care Time/CCT Total # of Minutes Spent Total Time Spent with Patient: Total time spent is greater than 50% in coordination of care (as documented) at patient's floor/unit and/or counseling patient: (1) Acute renal failure Acute renal failure type: unspecified Qualified Code(s): N17.9 - Acute kidney failure, unspecified (2) HTN (hypertension) Hypertension type: unspecified Qualified Code(s): I10 - Essential (primary) hypertension
[2019-03-04] MEDS: POTASSIUM CHLORIDE 20 MEQ TABCR PO SCH (20:13)
[2019-03-04] MEDS: SIMVASTATIN 40 MG TAB PO SCH (20:16)
[2019-03-05] MEDS: HEPARIN SOD 5,000 UNIT/0.5 ML VIAL SQ SCH ×3 (06:03→20:59)
[2019-03-05 06:23] LABS: Hematocrit (blood only) 25.8 % (42-52); Hemoglobin 8.6 g/dL (14.0-18.0); Mean Corpuscular Hgb Conc 33.3 g/dL (32-36); Mean Corpuscular Volume 98.1 fL (80-100); Mean Platelet Volume 10.6 fL (7.4-10.4); Platelet Count 116 K/uL (130-400); RDW Coefficient of Variation 14.6 % (11.5-14.5); RDW Standard Deviation 52.3 fL (36.4-46.3); Red Blood Count 2.63 M/uL (4.7-6.1); White Blood Count 7.49 K/uL (4.8-10.8)
[2019-03-05 07:00] LABS: BUN Creatinine Ratio 23.4 (10-20); Calcium 8.3 mg/dl (8.5-10.1); Creatinine Clr Calc Pharmacy 33.3 ml/min; Est GFR (African American) 37.5; Est GFR (Non-African American) 32.3; Potassium 3.4 mmol/L (3.5-5.1)
[2019-03-05] MEDS: GLUCOSAMINE SULFATE 500 MG CAP PO SCH ×2 (09:47→20:21)
[2019-03-05] MEDS: OMEGA-3 (PURIFIED FISH OIL) 1 GM CAP PO SCH (09:47)
[2019-03-05] MEDS: ASPIRIN 81 MG ECTAB PO SCH (09:47)
[2019-03-05] MEDS: MOMETASONE/FORMOTEROL 200MCG/5MCG INH SCH ×2 (09:48→20:21)
[2019-03-05] MEDS: ASCORBIC ACID 500 MG TAB PO SCH ×2 (09:48→20:21)
[2019-03-05] MEDS: AMIODARONE 200 MG TAB PO SCH (09:48)
[2019-03-05] MEDS: CLOPIDOGREL BISULFATE 75 MG TAB PO SCH (09:48)
[2019-03-05] MEDS: CHOLECALCIFEROL 1,000 UNITS TAB PO SCH (09:48)
[2019-03-05] MEDS: FUROSEMIDE 40 MG TAB PO SCH ×2 (09:48→11:10)
[2019-03-05] MEDS: MULTIVITAMIN TAB PO SCH (09:48)
--- NOTE | 2019-03-05 10:00 | Nephrology Progress Note ---
Date of Service March 05, 2019 Assessment & Plan (1) Acute on chronic renal insufficiency: 83 y o M with JOSE ENRIQUE in the setting of volume depletion with aggressive diuresis. Has been on IV fluid since admission. Renal function continues to improve, creatinine down to 3.0, has been having decent urine output without diuretics. Volume status seems stable. Has been off of IV fluid, renal function continues to improve, electrolyte acceptable. Overall feeling better but reports low grade fever. Hemoglobin low but stable, has adequate iron store. Na high, K low, net negative --continue to monitor for renal recovery with hemodynamics support, avoid further IV fluid, continue to hold diuretics for now. Encourage increased free water intake --replace K with 40 meq KCL --recommend intensive physical therapy -- Monitor I&O's, bp and serial PRP Will follow (2) Anemia: (3) Ischemic cardiomyopathy: Subjective ED was seen and examined with his son at bedside. Has been feeling better, denies any further shortness of breath or chest pain. Urine output has improve significantly, net negative 0.5 L. Renal function continues to improve slowly, creatinine down to 1.8, electrolyte acceptable. Has been off of IV fluid , blood pressure stable. Physical Exam Constitutional: WD/WN, vitals as above + ill appearing Respiratory: normal respiratory effort, lungs clear to auscultation Cardiovascular: RRR, no murmur, no edema Neurologic: moves all extremities and awake Psychiatric: A+Ox3, euthymic affect Results & Data Vital Signs (Past 12 Hours) Vital Signs Temp Pulse Pulse Resp BP Pulse Ox 03/05/19 08:35 37.2 C 18 94 03/05/19 04:43 36.8 C 73 18 95/55 L 95 03/05/19 00:00 70 03/04/19 23:33 36.6 C 73 19 98/55 L 93
--- NOTE | 2019-03-05 15:17 | Hospitalist Progress Note ---
Date of Service March 05, 2019 Assessment & Plan (1) Acute renal failure: Due to prerenal vs. ATN from increased Lasix/metolazone. Renal ultrasound without hydronephrosis. - Creatinine was 4.44 on admission, baseline is 1.3 and was steadily trending up over the past 2 to 3 weeks along with escalation of diuretics as an outpatient--> Baseline Cr. on 09/13 was 1.3 -> 2.4 on 02/14 -> 3.2 on 02/24 - Given IV fluids; finished IVFs on 03/03 in conjunction with nephro and cardio. - Will monitor Cr - Continue to hold home diuretics - Planned to restart today, but will likely restart tomorrow if Cr continues to improve. (2) Lightheaded: Seems likely related to volume depletion/dehydration due to above. - Resolved as of 03/04 with patient working PT/OT. (3) Hypotension: Longstanding per cardiology. [place] to be related to his known cardiomyopathy. - Will *not* give additional IV fluids to avoid hypervolemia. - Adjust meds as able - On 03/04, he was not orthostatic with OT. (4) CHF (congestive heart failure): Chronic systolic CHF. Last echo in 12/2017 in [facility] showed EF 25%. - Holding diuretics for now, will need new plan for resuming once renal function returns normal - Follow daily weights, strict I's and O's (5) HTN (hypertension): Profoundly hypotensive. - Holding home metoprolol and isosorbide as well as diuretics (as above) (6) Traumatic wound: Follows with [facility]. Finished almost a full course of levofloxacin for cellulitis proph - none further needed. (7) GERD (gastroesophageal reflux disease): Continue home ranitidine (8) HLD (hyperlipidemia): Continue statin (9) COPD (chronic obstructive pulmonary disease): No acute exacerbation. - Continue home meds - HS O2 use (10) CAD (coronary artery disease): Status post CABG. 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 tach. - Continue amiodarone - Holding beta-heriberto as above for hypotension - watch for recurrent V. tach (12) Anemia: Hemoglobin mildly low at 10.7 and is macrocytic. - B12 & folate were checked on 03/03 and were normal (13) DVT prophylaxis: SCDs, Heparin for DVT proph Subjective Feels well. Similar shortness of breath compared to yesterday. Possible mild swelling. Review of Systems Review of Systems: All systems reviewed & are unremarkable except as noted in HPI & below Physical Exam Constitutional: WD/WN, vitals as above Eyes: EOM intact bilaterally; no conjunctival abnormality ENMT: external ear and nose normal, oropharynx normal Neck: trachea midline, no thyromegaly normal visual inspection Respiratory: normal respiratory effort, lungs clear to auscultation no respiratory distress Cardiovascular: RRR, no murmur, no edema Gastrointestinal (Abdomen): Inspection/Auscultation: abdomen normal to inspection; abdomen not distended Musculoskeletal: no cyanosis or clubbing, extremities motor strength 5/5 Skin: no rashes, warm and dry Neurologic: moves all extremities and awake Psychiatric: Orientation: alert, oriented to person and cooperative Results & Data Vital Signs (Past 12 Hours) Vital Signs Temp Pulse Pulse Pulse Resp BP Pulse Ox 03/05/19 11:05 36.4 C L 70 20 94/56 L 96 03/05/19 10:00 70 03/05/19 08:35 37.2 C 18 94 03/05/19 04:43 36.8 C 73 18 95/55 L 95 PG Care Time/CCT Total # of Minutes Spent Total Time Spent with Patient: Total time spent is greater than 50% in coordination of care (as documented) at patient's floor/unit and/or counseling patient: (1) Acute renal failure Acute renal failure type: unspecified Qualified Code(s): N17.9 - Acute kidney failure, unspecified (2) HTN (hypertension) Hypertension type: unspecified Qualified Code(s): I10 - Essential (primary) hypertension
[2019-03-05] MEDS: POTASSIUM CHLORIDE 20 MEQ TABCR PO SCH (20:20)
[2019-03-05] MEDS: SIMVASTATIN 40 MG TAB PO SCH (20:21)
[2019-03-06] MEDS: HEPARIN SOD 5,000 UNIT/0.5 ML VIAL SQ SCH ×3 (05:36→21:09)
[2019-03-06 05:47] LABS: Hematocrit (blood only) 26.3 % (42-52); Hemoglobin 8.7 g/dL (14.0-18.0); Mean Corpuscular Hgb Conc 33.1 g/dL (32-36); Mean Corpuscular Volume 98.9 fL (80-100); Mean Platelet Volume 11.1 fL (7.4-10.4); Platelet Count 115 K/uL (130-400); RDW Coefficient of Variation 14.9 % (11.5-14.5); RDW Standard Deviation 53.1 fL (36.4-46.3); Red Blood Count 2.66 M/uL (4.7-6.1); White Blood Count 6.22 K/uL (4.8-10.8)
[2019-03-06 06:15] LABS: Albumin Level 2.8 gm/dl (3.4-5.0); BUN Creatinine Ratio 21.3 (10-20); Calcium 8.1 mg/dl (8.5-10.1); Creatinine Clr Calc Pharmacy 34.8 ml/min; Est GFR (African American) 39.5; Est GFR (Non-African American) 34.1; Phosphorus 2.3 mg/dl (2.5-4.9); Potassium 3.7 mmol/L (3.5-5.1)
[2019-03-06] MEDS: MULTIVITAMIN TAB PO SCH (07:55)
[2019-03-06] MEDS: CHOLECALCIFEROL 1,000 UNITS TAB PO SCH (07:55)
[2019-03-06] MEDS: CLOPIDOGREL BISULFATE 75 MG TAB PO SCH (07:55)
[2019-03-06] MEDS: FUROSEMIDE 40 MG TAB PO SCH (07:55)
[2019-03-06] MEDS: AMIODARONE 200 MG TAB PO SCH (07:55)
[2019-03-06] MEDS: OMEGA-3 (PURIFIED FISH OIL) 1 GM CAP PO SCH (07:55)
[2019-03-06] MEDS: ASCORBIC ACID 500 MG TAB PO SCH ×2 (07:55→21:09)
[2019-03-06] MEDS: GLUCOSAMINE SULFATE 500 MG CAP PO SCH ×2 (07:55→21:09)
[2019-03-06] MEDS: MOMETASONE/FORMOTEROL 200MCG/5MCG INH SCH ×2 (07:56→21:08)
--- NOTE | 2019-03-06 10:13 | Nephrology Progress Note ---
Date of Service March 06, 2019 Assessment & Plan (1) Acute on chronic renal insufficiency: 83 y o M with JOSE ENRIQUE in the setting of volume depletion with aggressive diuresis. Has been on IV fluid since admission. Renal function continues to improve, creatinine down to 3.0, has been having decent urine output without diuretics. Volume status seems stable. Has been off of IV fluid, renal function continues to improve, electrolyte acceptable. Overall feeling better but reports low grade fever. Hemoglobin low but stable, has adequate iron store. Na high, K low, net negative --continue to monitor for renal recovery with hemodynamics support, avoid further IV fluid. Encourage increased free water intake --recommend intensive physical therapy -- Monitor I&O's, bp and serial PRP --OK to be discharged from nephrology stand point. Will need f/u with heart failure clinic within 1 week after discharge. Will follow (2) Anemia: -- Mild asymptomatic anemia. Will monitor. No acute indication for ALECIA (3) Ischemic cardiomyopathy: -- Patient reports "dry weight" at home of 184 lbs. He notes that his scale reads 10 lbs lower than hospital scales. His admission weight was 198 lbs and he appears dehydrated. Patient will likely need to adjust his EDW at the time of discharge and should purchase an accurate home scale -- Await Cardiology input Subjective ED was seen and examined with his son at bedside. Continues to feel better everyday , denies any further shortness of breath or chest pain. Urine output has improve significantly, net negative 0.3 L. Renal function continues to improve slowly, creatinine down to 1.7, electrolyte acceptable. Has been off of IV fluid , blood pressure stable. Lasix started this am as Weight increased to 93 kg Physical Exam Constitutional: WD/WN, vitals as above + ill appearing Respiratory: normal respiratory effort, lungs clear to auscultation Cardiovascular: RRR, no murmur, no edema Neurologic: moves all extremities and awake Psychiatric: A+Ox3, euthymic affect Results & Data Vital Signs (Past 12 Hours) Vital Signs Temp Pulse Pulse Pulse Resp BP Pulse Ox 03/06/19 06:51 36.3 C L 85 15 100/56 L 95 03/06/19 03:43 36.6 C 76 21 84/54 L 98 03/06/19 00:00 72 03/05/19 23:26 36.4 C L 76 16 102/54 L 100
--- NOTE | 2019-03-06 15:25 | Heart Failure Progress Note ---
Date of Service March 06, 2019 Assessment & Plan (1) CHF (congestive heart failure): The patient appears near euvolemic and well compensated today. His creatinine has continued to trend down towards baseline over the past several days. His oral Lasix 40 mg has been restarted today. Continue careful monitoring of renal function and electrolytes. Continue daily weights, strict I&Os. Dry weight according to the office chart is approximately 195-197 lb. Multiple family members were present today for discussion. We reviewed the nature of the heart failure program and answered several their questions. He was encouraged to resume daily weights at home, documenting them, and bringing t hem to his appointment. He should continue to follow a low-sodium diet, less than 2000 mg daily. He is not currently on a fluid restriction due to his acute kidney injury. Nephrology has recommended increased free water intake. (2) Ischemic cardiomyopathy: Reduced left systolic dysfunction is longstanding. Metoprolol succinate is currently on hold due to hypotension. Hopefully this can be resumed prior to discharge once his volume status is improved. ICD was placed in 2015. Continue with regular device checks (3) Acute renal failure: Nephrology is on board. Creatinine continues to improve each day. Lasix was restarted today. Continue monitoring. Disposition: Patient is current medically stable for discharge. Insurance authorization is pending for [facility]. Anticipate close follow-up with heart failure program as he will likely require frequent lab monitoring and diuretic adjustments to maintain his delicate fluid balance. I will be out of town next week and have asked them to schedule him with Ms. Davis, appointment is pending. He has a routine cardiology follow-up scheduled with Dr. Bhat on March 26 at 11:30 a.m.. This is been added to the chart. Subjective Mr. Lackey is an 83 year old male with history of hypertension, hyp ercholesterolemia, ischemic cardiomyopathy (AMI, 40%, May 2013; 30% October 2015, 30% December 2015, 25-30% Aug 2016, 25% December 2017), chronic systolic congestive heart failure, coronary artery disease (CABG 1988), and for management of his device (biventricular pacemaker/ICD, October 2015). Mr. Lackey was admitted on 03/01/19 with an acute renal injury (creatinine 4.44) after increasing his outpatient diuretic regimen due to fluid retention. He had also been recently started on Levaquin for skin lacerations and cellulitis prophylaxis after a fall. Diuretics were held and he was given an IV fluid bolus of 250 cc in the ED and continued gentle hydration through the night. Nephrology was consulted. There was no evidence of ATN or hydronephrosis. He has not required further IV fluids and his creatinine has been trending downwards over the last few days to 1.81 (baseline 1.3). He has improved medically and is awaiting placement at [facility]. He was initially seen by the heart failure program on Sunday, however the patient was asleep, and most of the time was spent talking to the patient's son Blake. Today the patient is feeling much improved he is awake and alert. He denies shortness of breath, orthopnea, or worsening lower extremity edema. He does admit to chronic left lower extremity edema which has been stable. Patient was at home and send her home with his . His children live locally. His dry weight on his home scales 184 lb. His typical home regimen is Lasix 40 mg daily with metolazone as needed. Physical Exam Physical Exam: Constitutional: Alert, oriented, in no acute distress HEENT: Head is atraumatic and normocephalic. EOMs intact. Sclera anicteric. Face is symmetric. No perioral cyanosis. Mucous membranes moist. Neck: Supple, no JVD at 30 degrees. + HJR Pulmonary: Normal respiratory effort, clear to auscultation bilaterally Cardiac: Regular rate and rhythm. Normal S1 and S2, no gallops, no rubs, no murmurs Extremities: 2+ radial pulses bilaterally. 2+ posterior tibialis pulses bilaterally. Trace-1+ non pitting edema at the ankles. No cyanosis or clubbing. Abdomen: Normal bowel sounds, soft, non-tender, no abdominal mass palpated Skin: Normal skin color, turgor, and pigmentation, no rash, no skin lesions. Multiple areas of ecchymosis noted throughout BUE, hands especially. Neurological: Patient is awake, alert, and oriented. Pleasant and cooperative. Answers questions appropriately. Speech is clear. Normal movement in all 4 extremities. Gait pattern was not assessed. Results & Data Vital Signs (Past 12 Hours) Vital Signs Temp Pulse Pulse Pulse Resp BP BP 03/06/19 11:09 36.6 C 72 19 100/57 L 03/06/19 10:00 72 03/06/19 06:51 36.3 C L 85 15 100/56 L 03/06/19 03:43 36.6 C 76 21 84/54 L Pulse Ox 03/06/19 11:09 96 03/06/19 10:00 03/06/19 06:51 95 03/06/19 03:43 98 (1) Acute renal failure Acute renal failure type: unspecified Qualified Code(s): N17.9 - Acute kidney failure, unspecified
--- NOTE | 2019-03-06 16:09 | Hospitalist Progress Note ---
Date of Service March 06, 2019 Assessment & Plan (1) Acute renal failure: Due to prerenal vs. ATN from increased Lasix/metolazone. Renal ultrasound without hydronephrosis. - Creatinine was 4.44 on admission, baseline is 1.3 and was steadily trending up over the past 2 to 3 weeks along with escalation of diuretics as an outpatient--> Baseline Cr. on 09/13 was 1.3 -> 2.4 on 02/14 -> 3.2 on 02/24 - Given IV fluids; finished IVFs on 03/03 in conjunction with nephro and cardio. - Will monitor Cr - Likely near baseline of 1.8 on 03/06 - Restarted Lasix 40mg PO daily on 03/06. (2) Lightheaded: Seems likely related to volume depletion/dehydration due to above. - Resolved as of 03/04 with patient working PT/OT. (3) Hypotension: Longstanding per cardiology. [place] to be related to his known cardiomyopathy. - Will *not* give additional IV fluids to avoid hypervolemia. - Adjust meds as able - On 03/04, he was not orthostatic with OT. (4) CHF (congestive heart failure): Chronic systolic CHF. Last echo in 12/2017 in [facility] showed EF 25%. - Holding diuretics for now, will need new plan for resuming once renal function returns normal - Follow daily weights, strict I's and O's (5) HTN (hypertension): Profoundly hypotensive. - Holding home metoprolol and isosorbide as well as diuretics (as above) (6) Traumatic wound: Follows with [facility]. Finished almost a full course of levofloxacin for cellulitis proph - none further needed. (7) GERD (gastroesophageal reflux disease): Continue home ranitidine (8) HLD (hyperlipidemia): Continue statin (9) COPD (chronic obstructive pulmonary disease): No acute exacerbation. - Continue home meds - HS O2 use (10) CAD (coronary artery disease): Status post CABG. 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 tach. - Continue amiodarone - Holding beta-heriberto as above for hypotension - watch for recurrent V. tach (12) Anemia: Hemoglobin mildly low at 10.7 and is macrocytic. - B12 & folate were checked on 03/03 and were normal (13) DVT prophylaxis: SCDs, Heparin for DVT proph Subjective Reports his breathing is quite well. He is lying flat and reports no shortness of breath. Review of Systems Review of Systems: All systems reviewed & are unremarkable except as noted in HPI & below Physical Exam Constitutional: WD/WN, vitals as above Eyes: EOM intact bilaterally; no conjunctival abnormality ENMT: external ear and nose normal, oropharynx normal Neck: trachea midline, no thyromegaly normal visual inspection Respiratory: normal respiratory effort, lungs clear to auscultation no respiratory distress Cardiovascular: RRR, no murmur, no edema Gastrointestinal (Abdomen): Inspection/Auscultation: abdomen normal to inspection; abdomen not distended Musculoskeletal: no cyanosis or clubbing, extremities motor strength 5/5 Skin: no rashes, warm and dry Neurologic: moves all extremities and awake Psychiatric: Orientation: alert, oriented to person and cooperative Results & Data Vital Signs (Past 12 Hours) Vital Signs Temp Pulse Pulse Pulse Resp BP BP 03/06/19 15:43 36.7 C 67 18 85/55 L 03/06/19 11:09 36.6 C 72 19 100/57 L 03/06/19 10:00 72 03/06/19 06:51 36.3 C L 85 15 100/56 L Pulse Ox 03/06/19 15:43 96 03/06/19 11:09 96 03/06/19 10:00 03/06/19 06:51 95 PG Care Time/CCT Total # of Minutes Spent Total Time Spent with Patient: Total time spent is greater than 50% in coordination of care (as documented) at patient's floor/unit and/or counseling patient: (1) Acute renal failure Acute renal failure type: unspecified Qualified Code(s): N17.9 - Acute kidney failure, unspecified (2) HTN (hypertension) Hypertension type: unspecified Qualified Code(s): I10 - Essential (primary) hypertension
[2019-03-06] MEDS: SIMVASTATIN 40 MG TAB PO SCH (21:09)
[2019-03-06] MEDS: POTASSIUM CHLORIDE 20 MEQ TABCR PO SCH (21:09)
[2019-03-07] MEDS: HEPARIN SOD 5,000 UNIT/0.5 ML VIAL SQ SCH (06:03)
[2019-03-07 07:41] LABS: Albumin Level 2.7 gm/dl (3.4-5.0); BUN Creatinine Ratio 20.9 (10-20); Calcium 7.9 mg/dl (8.5-10.1); Est GFR (African American) 39.7; Est GFR (Non-African American) 34.3; Phosphorus 2.4 mg/dl (2.5-4.9); Potassium 3.5 mmol/L (3.5-5.1)
[2019-03-07] MEDS: OMEGA-3 (PURIFIED FISH OIL) 1 GM CAP PO SCH (08:39)
[2019-03-07] MEDS: GLUCOSAMINE SULFATE 500 MG CAP PO SCH (08:39)
[2019-03-07] MEDS: ASPIRIN 81 MG ECTAB PO SCH (08:39)
[2019-03-07] MEDS: AMIODARONE 200 MG TAB PO SCH (08:39)
[2019-03-07] MEDS: FUROSEMIDE 40 MG TAB PO SCH (08:39)
[2019-03-07] MEDS: ASCORBIC ACID 500 MG TAB PO SCH (08:39)
[2019-03-07] MEDS: CHOLECALCIFEROL 1,000 UNITS TAB PO SCH (08:40)
[2019-03-07] MEDS: MULTIVITAMIN TAB PO SCH (08:40)
[2019-03-07] MEDS: MOMETASONE/FORMOTEROL 200MCG/5MCG INH SCH (08:40)
[2019-03-07] MEDS: CLOPIDOGREL BISULFATE 75 MG TAB PO SCH (08:40)
--- NOTE | 2019-03-07 10:01 | Nephrology Progress Note ---
Date of Service March 07, 2019 Assessment & Plan (1) Acute on chronic renal insufficiency: 83 y o M with JOSE ENRIQUE in the setting of volume depletion with aggressive diuresis. Has been on IV fluid since admission. Renal function continues to improve, creatinine down to 3.0, has been having decent urine output without diuretics. Volume status seems stable. Has been off of IV fluid, renal function continues to improve, electrolyte acceptable. Overall feeling better. Hemoglobin low but stable, has adequate iron store. --renal function stable, suggest repeat outpt lab in 2/3 days after discharge and follow with heart failure clinic --OK to be discharged from nephrology stand point. Will need f/u with heart failure clinic within 1 week after discharge. Will follow (2) Anemia: -- Mild asymptomatic anemia. Will monitor. No acute indication for ALECIA (3) Ischemic cardiomyopathy: -- Patient reports "dry weight" at home of 184 lbs. He notes that his scale reads 10 lbs lower than hospital scales. His admission weight was 198 lbs and he appears dehydrated. Patient will likely need to adjust his EDW at the time of discharge and should purchase an accurate home scale -- Await Cardiology input Subjective ED was seen and examined with his son at bedside. Continues to feel better everyday , denies any further shortness of breath or chest pain. Urine output has improve significantly, net negative 0.3 L. Renal function continues to improve slowly, creatinine stable at 1.8 electrolyte acceptable. Has been off of IV fluid , blood pressure stable. Physical Exam Constitutional: WD/WN, vitals as above + ill appearing Respiratory: normal respiratory effort, lungs clear to auscultation Cardiovascular: RRR, no murmur, no edema Neurologic: moves all extremities and awake Psychiatric: A+Ox3, euthymic affect Results & Data Vital Signs (Past 12 Hours) Vital Signs Temp Pulse Pulse Pulse Resp BP BP 03/07/19 07:35 36.7 C 70 19 101/50 L 03/07/19 04:00 36.4 C L 70 19 94/54 L 03/07/19 00:21 36.6 C 70 19 101/56 L 03/07/19 00:00 70 Pulse Ox 03/07/19 07:35 98 03/07/19 04:00 97 03/07/19 00:21 97 03/07/19 00:00
--- NOTE | 2019-03-07 16:48 | Discharge Summary ---
Date of Service March 07, 2019 Admission HPI Per Admitting Provider 83 y/o M c/o worsening lightheadedness and weakness. Pt states that this has been ongoing for about 2 weeks. He was seen in the ED 2 weeks ago for a fall that resulted in some significant skin tearing and has been seen by the wound care clinic for this as well. Pt has been working with Dr. Bhat for CHF management. He was not maintaining dry weights and had a lot of abd swelling with some LE swelling. Not much SOB. Pt and family state that most of his CHF fluid retention is in the abd generally. Dr. Bhat has been increasing his lasix and metolazone dosing for this reason. His metolazone was changed from PRN to QD for 2 weeks. As pt's cr was increasing, it was stopped on 02/25. His dry weight target was increased by 2 lbs as well. For the last 4 days pt has been under his dry weight. He feels weak and tired. He has not been eating much or moving around much due to becoming lightheaded with change in positioning. He saw his PCP who noted some low BPs and stopped his metoprolol. After 3 days his BP was improved and this was restarted. He has been able to urinate without issue, but notes decreased output. Pt's only other hx of renal issues is a stone 06/2018. He was seen by urology for this, but no hx of needing to see nephrology. Pt states he does feel a bit improved s/p IVF in the ED. He has not been OOB yet though. Pt denies fever, chest pain, abd pain, n/v/c/d, LE pain or swelling. Pt had been started on levaquin s/p fall and skin lacerations for cellulitis prophylaxis. He continued to feel worse on this and ultimately stopped taking it. He had taken all but the last dose however. Principal Diagnosis Kidney failure due to diuretic Discharge Exam Constitutional WD/WN, vitals as above Eyes EOM intact bilaterally; no conjunctival abnormality ENMT external ear and nose normal, oropharynx normal Neck trachea midline, no thyromegaly normal visual inspection Respiratory normal respiratory effort, lungs clear to auscultation no respiratory distress Cardiovascular RRR, no murmur, no edema Gastrointestinal (Abdomen) Inspection/Auscultation: abdomen normal to inspection; abdomen not distended Musculoskeletal no cyanosis or clubbing, extremities motor strength 5/5 Skin no rashes, warm and dry Neurologic moves all extremities and awake Psychiatric Orientation: alert, oriented to person and cooperative Discharge Data Allergies Allergy/AdvReac Type Severity Reaction Status Date / Time levofloxacin [From Levaquin] AdvReac Severe dizzy/upset Unverified 03/01/19 14:35 stomach fluticasone AdvReac Intermediate DIZZY Unverified 03/01/19 14:35 milk AdvReac Intermediate DIZZY Unverified 03/01/19 14:35 salmeterol AdvReac Intermediate DIZZY Unverified 03/01/19 14:35 Consultations 03/01/19 15:55 ED Decision to Admit Stat 03/01/19 17:33 Consult Case Management - Discharge Planning Routine 03/02/19 08:29 Consult Nephrology Routine Ordered Studies 03/02/19 08:30 US renal/blad retro comp Routine Hospital Course (1) Acute renal failure: Due to prerenal vs. ATN from increased Lasix/metolazone. Renal ultrasound without hydronephrosis. - Creatinine was 4.44 on admission, baseline is 1.3 and was steadily trending up over the past 2 to 3 weeks along with escalation of diuretics as an outpatient--> Baseline Cr. on 09/13 was 1.3 -> 2.4 on 02/14 -> 3.2 on 02/24 - Given IV fluids; finished IVFs on 03/03 in conjunction with nephro and cardio. - Will monitor Cr - Likely near baseline of 1.8 on 03/06 - Restarted Lasix 40mg PO daily on 03/06. Baseline weight is 93kg or slightly less. Should monitor weight and work with cardiologists to prevent volume overload. (2) Lightheaded: Seems likely related to volume depletion/dehydration due to above. - Resolved as of 03/04 with patient working PT/OT. (3) Hypotension: Longstanding per cardiology. [place] to be related to his known cardiomyopathy. - Will *not* give additional IV fluids to avoid hypervolemia. - Adjust meds as able - On 03/04, he was not orthostatic with OT. (4) CHF (congestive heart failure): Chronic systolic CHF. Last echo in 12/2017 in [facility] showed EF 25%. - Holding diuretics for now, will need new plan for resuming once renal function returns normal - Follow daily weights, strict I's and O's (5) HTN (hypertension): Profoundly hypotensive. - Holding home metoprolol and isosorbide as well as diuretics (as above) (6) Traumatic wound: Follows with [facility]. Finished almost a full course of levofloxacin for cellulitis proph - none further needed. (7) GERD (gastroesophageal reflux disease): Continue home ranitidine (8) HLD (hyperlipidemia): Continue statin (9) COPD (chronic obstructive pulmonary disease): No acute exacerbation. - Continue home meds - HS O2 use (10) CAD (coronary artery disease): Status post CABG. 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 tach. - Continue amiodarone - Holding beta-heriberto as above for hypotension - watch for recurrent V. tach (12) Anemia: Hemoglobin mildly low at 10.7 and is macrocytic. 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 Lackey was admitted with renal failure from the diuretics used to manage his CHF. He was given gentle IV fluids and his kidney function returned to a Cr. of 1.8 which is likely his new baseline. A BMP should be checked over the weekend or early next week. On discharge, he had been restarted on his home Lasix, but no metolazone had been given. His weight on discharge is 93 kg. He has no rales and no orthopnea, but does have mild 1+ edema in the calves. He should really not go above 93 kg, and probably should even be very gently diuresed another few pounds. 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 His metoprolol and Imdur were held for low blood pressures. On discharge, we suggest restarting a low dose of his metoprolol XL (25 mg PO daily). Imdur can be restarted as well at a low dose in a few days. Prescriptions: Continued amiodarone 200 mg tablet 200 mg PO QAM Qty: 90 RF: 0 clopidogrel [Plavix] 75 mg tablet 75 mg PO QAM Qty: 90 RF: 0 furosemide [Lasix] 40 mg tablet 40 mg PO QAM Qty: 90 RF: 0 Dulera 200-5 mcg/actuation HFA aerosol inhaler 2 puff INHALATION Q12H Qty: 13 RF: 0 simvastatin 40 mg tablet 40 mg PO HS Qty: 90 RF: 0 lecithin 1,200 mg Capsule 1,200 mg PO BID RF: 0 ranitidine HCl 75 mg Tablet 75 mg PO HS RF: 0 Vitamin C 100 mg Tablet 100 mg PO BID RF: 0 nitroglycerin [Nitrostat] 0.4 mg Tablet, Sublingual 0.4 mg Sublingual DIRECTED PRN (Reason: Chest Pain) RF: 0 glucosamine-chondroitin 1,500-1,200 mg/30 mL Liquid 1 tab PO BID RF: 0 coenzyme Q10 [CoQ-10] 100 mg Capsule 100 mg PO QAM RF: 0 cholecalciferol (vitamin D3) [Vitamin D3] 1,000 unit Tablet 1,000 unit PO QAM RF: 0 omega 9-hol-tit-fish oil [Fish Oil] 1,000 mg (120 mg-180 mg) Capsule 1,200 mg PO QAM RF: 0 albuterol sulfate [Ventolin HFA] 90 mcg/actuation HFA aerosol inhaler 1 puff Inhalation DAILY PRN (Reason: Shortness Of Breath Or Wheezing) RF: 0 aspirin 81 mg tablet,delayed release (DR/EC) 81 mg PO 3XWK RF: 0 multivitamin tablet 1 tab PO QAM RF: 0 potassium chloride [Klor-Con M20] 20 mEq tablet,ER particles/crystals 20 meq PO PM RF: 0 Changed metoprolol succinate 100 mg tablet extended release 24 hr 25 mg PO DAILY Qty: 180 RF: 0 Discontinued metolazone 5 mg tablet 5 mg PO DAILY PRN (Reason: Edema) RF: 0 isosorbide mononitrate 30 mg tablet extended release 24 hr 30 mg PO QDL RF: 0 Stand-Alone Forms: [facility] Discharge Orders: Discharge Order (Routine); Ordered 03/07/19 Ordered By: Almas Brooks Skilled Items Patient informed of condition?: Yes DNR: No Discharge Level of Care: Acute rehab Communicable Disease: No Discharge Prognosis: Improving Admission Data Admit Date/Time: 03/01/19 16:40 Attending Provider: Almas Brooks Admit Provider: Aviva Tay Primary Care Provider: Stephanie Guajardo Other Providers: Charles De Souza ; Almas Brooks Service: Telemetry Other Interventions: Discharge Summary Assessment (RN) Last Done: 03/07/19 11:17 DC Date/Time DO NOT enter until pt leaves facility: 03/07/19 13:57
== END 2019-03-07 13:57 | DRG 683 ==
LOC: ED 13:48 → SUATTDRO 16:40 → 2E 16:40
DX: E87.6 Hypokalemia; J44.9 Chronic obstructive pulmonary disease, unspecified; E78.5 Hyperlipidemia, unspecified; N18.3 Chronic kidney disease, stage 3 (moderate); T50.2X5A Adverse effect of carbonic-anhydrase inhibitors, benzothiadiazides and other diuretics, initial encounter; D53.9 Nutritional anemia, unspecified; Z79.02 Long term (current) use of antithrombotics/antiplatelets; I12.9 Hypertensive chronic kidney disease with stage 1 through stage 4 chronic kidney disease, or unspecified chronic kidney disease; I50.22 Chronic systolic (congestive) heart failure; Z95.1 Presence of aortocoronary bypass graft; Y92.009 Unspecified place in unspecified non-institutional (private) residence as the place of occurrence of the external cause; Z95.0 Presence of cardiac pacemaker; K21.9 Gastro-esophageal reflux disease without esophagitis; Z96.649 Presence of unspecified artificial hip joint; Z87.442 Personal history of urinary calculi; I25.5 Ischemic cardiomyopathy; N17.0 Acute kidney failure with tubular necrosis